=== PATIENT | female | born 1995 | race Caucasian/White ===

== ENCOUNTER → 2016-03-05 | Outpatient (CLI) | payer OTHER ==
[~2016-03-05] MED LIST: BCPILLS PO; IBUP-1277 PO; ONDA4TAB46 PO; PEDICHW53 PO; SERT50TA PO
[2016-03-05 16:06] LABS: URINE APPEARANCE CLEAR (CLEAR); URINE BILIRUBIN NEG (NEG); URINE COLOR DK YELLOW; URINE NITRITE NEG (NEG); URINE SPECIFIC GRAVITY 1.031 (1.000-1.030); UROBILINOGEN NEG (NEG)
[2016-03-05 16:12] LABS: MANUAL MICROSCOPIC REQUIRED? NO; REVIEW REQ? NO
== END | disposition home or self-care (01) ==
LOC: C.LABSPEC 15:59
PROVIDERS: ATTEND Obstetrics & Gynecology
DX: Z33.1 Pregnant state, incidental (principal)

== ENCOUNTER → 2016-03-06 | Outpatient (CLI) | payer OTHER ==
[2016-03-06 16:21] LABS: BASO % 0.4 %; BASO ABS # 0.04 K/uL (0-0.2); COMPLETE YES; EOS % 1.1 %; HEMATOCRIT 35.4 % (37-47); IG% 0.4 %; LYMPH % 21.5 %; LYMPH ABS # 2.02 K/uL (1.2-3.4); MEAN CELL VOLUME 81.2 fL (80-100); MEAN CORPUSCULAR HEMOGLOBIN 28.9 pg (25-34); MEAN CORPUSCULAR HGB CONC 35.6 g/dl (32-36); MEAN PLATELET VOLUME 9.4 fL (7.4-10.4); MONO % 9.6 %; PLATELET COUNT 297 K/uL (130-400); RED BLOOD COUNT 4.36 M/uL (4.2-5.4)
[2016-03-09 13:25] LABS: CHLAMYDIA TRACH RNA*** NOT DETECTED (NOT DETECTED); GC (NEIS GONORRHOEAE)RNA** NOT DETECTED (NOT DETECTED)
== END | disposition home or self-care (01) ==
LOC: C.LAB1850 15:36
PROVIDERS: ATTEND Obstetrics & Gynecology
DX: Z33.1 Pregnant state, incidental (principal)

== ENCOUNTER 2016-04-24 14:31 | Emergency (ER) | payer OTHER ==
[~2016-04-24] VITALS: Ht 152.4 cm; Wt 65.4 kg
[~2016-04-24 14:31] MED LIST changes: -ONDA4TAB46 PO; -PEDICHW53 PO
[2016-04-24 14:36] VITALS: TEMP 37.1; Ht 152.4 cm; Wt 65.4 kg
[2016-04-24] MEDS ORDERED: ONDANSETRON INJ 2 MG/ML 2 ML VIAL IV STA (16:05)
[2016-04-24] MEDS ORDERED: SODIUM CHLORIDE 0.9% 1000ML 1,000 ML IV ONE (16:15)
[2016-04-24 16:16] LABS: BASO % 0.2 %; BASO ABS # 0.02 K/uL (0-0.2); COMPLETE YES; HEMATOCRIT 34.3 % (37-47); IG% 0.4 %; LYMPH ABS # 1.42 K/uL (1.2-3.4); MEAN CELL VOLUME 79.6 fL (80-100); MEAN CORPUSCULAR HEMOGLOBIN 29.2 pg (25-34); MEAN CORPUSCULAR HGB CONC 36.7 g/dl (32-36); MEAN PLATELET VOLUME 9.2 fL (7.4-10.4); NEUT % 74.4 %; PLATELET COUNT 236 K/uL (130-400); RED BLOOD COUNT 4.31 M/uL (4.2-5.4); WHITE BLOOD COUNT 8.33 K/uL (4.8-10.8)
[2016-04-24 16:23] LABS: ALT/SGPT 21 U/L (12-78); BLOOD UREA NITROGEN 9 mg/dl (7-18); BUN/CREATININE RATIO 18.8 (10-20); CARBON DIOXIDE 20 mmol/L (21-32); CHLORIDE 105 mmol/L (98-107); CREATININE 0.49 mg/dl (0.60-1.20); GLUCOSE 74 mg/dl (70-99); POTASSIUM 3.6 mmol/L (3.5-5.1); SODIUM 139 mmol/L (136-145)
[2016-04-24 16:26] LABS: ALKALINE PHOSPHATASE 79 U/L (45-117); AST/SGOT 25 U/L (15-37)
[2016-04-24 17:43] LABS: URINE APPEARANCE CLEAR (CLEAR); URINE BILIRUBIN NEG (NEG); URINE COLOR DK YELLOW; URINE EPITHELIAL CELL AUTO >30 /lpf (0-5); URINE NITRITE NEG (NEG); URINE SPECIFIC GRAVITY 1.029 (1.000-1.030); UROBILINOGEN NEG (NEG)
[2016-04-24 17:49] LABS: MANUAL MICROSCOPIC REQUIRED? NO; REVIEW REQ? NO
[2016-04-24] MEDS ORDERED: ONDA4TAB46 PO (18:04)
[2016-04-24 18:15] VITALS: BP 115/67; PULSE 73; O2SAT 100
--- NOTE | 2016-04-25 10:52 | EMERGENCY ROOM VISIT NOTE ---
ED Visit Note First contact with patient: 15:47 Chief Complaint: Nausea, vomiting and diarrhea. History of Present Illness: Ms. Gonzalez is a 21-year-old white female who ambulates into the ED complaining of nausea, vomiting and diarrhea. Historically patient reports she is currently for the first time with an EDC of October 13. She has had no complications with her current . Patient reports approximately 2 days ago she started developing nausea and started vomiting almost immediately. Since that time she has been constant. She reports the last 12 hours she has vomited 6 times. She describes her vomiting is bilious. Her nausea and vomited worsening when she attempts to eat or drink. She has not identified any alleviating factors. She has not taken any medications for her nausea or vomiting prior to arrival at the hospital. Associated with her nausea vomiting she also reports she has had a light brown to yellowish diarrhea. She reports the last 12 hours she has had 3 episodes of diarrhea. She has not identified any aggravating or alleviating factors related to the diarrhea. She has not taken any medications for her diarrhea prior to arrival at the hospital. Associated with these 2 symptoms she also reports that she is slightly lightheaded in the first evening of her illness she had a 102F fever and has not returned. She denies fevers, chills, sweats, skin eruptions, skin color changes, upper respiratory tract symptoms, chest pain, abdominal pain, back/flank pain, extremity weakness/numbness/tingling, hematemesis, urinary symptoms, hematuria, vaginal bleeding/discharge, bloody stools, black/tarry stools. She also denies closed contact with anybody with similar symptoms, antibiotic use in the last 6 months and anytime out of this country in the last 3 months. Review of Systems: As noted above in history of present illness. All 5 body systems were reviewed and found to be negative as noted above. Past Medical History: Patient denies. Current Medications: Zoloft, multivitamins. Allergies to Medications: Patient denies. Social History: Patient is currently; she feels safe in her home environment; she denies tobacco and alcohol use. Physical Examination: Vital Signs: Date Time Temp Pulse Resp B/P Pulse Ox O2 Delivery O2 Flow Rate FiO2 04/24/16 18:15 73 18 115/67 100 04/24/16 17:13 72 18 112/63 04/24/16 16:36 90 18 93/63 100 Room Air 74 117/76 71 117/77 04/24/16 14:36 37.1 91 18 123/80 100 Room Air GENERAL: 21-year-old female in mild distress due to symptoms, nontoxic-appearing , afebrile and hemodynamically stable. NEUROLOGICAL: Awake, alert and oriented to person, place and time. Answering questions appropriately and following commands. Normal gait. Good hand eye coordination. No focal motor sensory deficits. SKIN: Warm, dry and pink. No soft tissue eruptions or trauma noted. HEENT: Atraumatic and normocephalic. PERRLA. Sclera white and conjunctiva pink. No drainage from naris. Oral cavity moist and pink. Pharynx is nonerythematous or edematous. Speech normal. No lymphadenopathy. Trachea midline. No jugular venous distention. BACK: No tenderness over the bony spine. No CVA tenderness. THORAX: Lungs sounds are clear to auscultation and equal bilaterally with symmetrical chest wall. No wheezing, rales or rhonchi. No crepitus, tenderness , subcutaneous air or deformities noted. HEART: Regular rate and rhythm. No gallops, rubs or murmurs are appreciated. ABDOMEN: Flat, soft and nontender. Positive bowel sounds in all quadrants. No guarding, rigidity or organomegaly. EXTREMITIES: Moves all extremities well on command and with purpose. All distal neurovascular statuses are intact and equal bilaterally. ED Course: Patient is assessed as noted above. Laboratory Testing: Test 04/24/16 15:51 04/24/16 16:21 04/24/16 17:10 Range/Units White Blood Count 8.33 4.8-10.8 K/uL Red Blood Count 4.31 4.2-5.4 M/uL Hemoglobin 12.6 12.0-16.0 g/dL Hematocrit 34.3 37-47 % Mean Corpuscular Volume 79.6 80-100 fL Mean Corpuscular Hemoglobin 29.2 25-34 pg Mean Corpuscular Hemoglobin Concent 36.7 32-36 g/dl Platelet Count 236 130-400 K/uL Mean Platelet Volume 9.2 7.4-10.4 fL Neutrophils (%) (Auto) 74.4 % Lymphocytes (%) (Auto) 17.0 % Monocytes (%) (Auto) 7.0 % Eosinophils (%) (Auto) 1.0 % Basophils (%) (Auto) 0.2 % Neutrophils # (Auto) 6.20 1.4-6.5 K/uL Lymphocytes # (Auto) 1.42 1.2-3.4 K/uL Monocytes # (Auto) 0.58 0.11-0.59 K/uL Eosinophils # (Auto) 0.08 0-0.5 K/uL Basophils # (Auto) 0.02 0-0.2 K/uL RDW Standard Deviation 37.0 36.4-46.3 fL RDW Coefficient of Variation 12.8 11.5-14.5 % Immature Granulocyte % (Auto) 0.4 % Immature Granulocyte # (Auto) 0.03 0.00-0.02 K/uL Sodium Level 139 136-145 mmol/L Potassium Level 3.6 3.5-5.1 mmol/L Chloride Level 105 98-107 mmol/L Carbon Dioxide Level 20 21-32 mmol/L Anion Gap 14.0 3-11 mmol/L Blood Urea Nitrogen 9 7-18 mg/dl Creatinine 0.49 0.60-1.20 mg/dl Est Creatinine Clear Calc Drug Dose 154.6 ml/min Estimated GFR () > 150.0 Estimated GFR (Non- 140.3 BUN/Creatinine Ratio 18.8 10-20 Random Glucose 74 70-99 mg/dl Calcium Level 9.0 8.5-10.1 mg/dl Total Bilirubin 0.2 0.2-1 mg/dl Direct Bilirubin < 0.1 0-0.2 mg/dl Aspartate Amino Transf (AST/SGOT) 25 15-37 U/L Alanine Aminotransferase (ALT/SGPT) 21 12-78 U/L Alkaline Phosphatase 79 45-117 U/L Total Protein 7.4 6.4-8.2 gm/dl Albumin 3.4 3.4-5.0 gm/dl Influenza Type A Antigen Neg for Influ A NEG Influenza Type B Antigen Neg for Influ B NEG Urine Color DK YELLOW Urine Appearance CLEAR CLEAR Urine pH 5.0 4.5-7.5 Urine Specific [place] 1.029 1.000-1.030 Urine Protein NEG NEG Urine Glucose (UA) NEG NEG Urine Ketones 4+ NEG Urine Occult Blood NEG NEG Urine Nitrite NEG NEG Urine Bilirubin NEG NEG Urine Urobilinogen NEG NEG Urine Leukocyte Esterase TRACE NEG Urine WBC (Auto) 5-10 0-5 /hpf Urine RBC (Auto) 0-4 0-4 /hpf Urine Hyaline Casts (Auto) 1-5 0-5 /lpf Urine Epithelial Cells (Auto) >30 0-5 /lpf Urine Bacteria (Auto) 1+ NEG Patient was hydrated with normal saline and received 4 mg of Zofran IV. Patient was reassessed multiple times while in the emergency department. Patient's case was reviewed with Dr. Connell; ureteral diagnostic approach, treatment, disposition and plan Patient was trialed on crackers and juice and had no return of nausea or vomiting. Additionally when she is emergency department she had no additional episodes of diarrhea. Patient was educated about today's ED visit and instructed on her treatment plan ; she verbalizes understanding and agreement with this plan. Clinical Impression: Nausea, vomiting diarrhea. Decision-Making: Initially my differential diagnosis I considered gastroenteritis, nonspecific diarrheal illness, hyperemesis gravidarum, urinary tract infection and other causes. Disposition: Patient discharged home in stable condition accompanied by her mother; prior to departure she was reassessed and subjectively she was feeling much better and was nausea and diarrhea free. On discharge patient did report she was having a headache; she reports a history of migraines, and inquired what medication she could have I offered her Tylenol and she refused. Plan: Patient was encouraged use 650 mg of acetaminophen every 6 hours as needed for Patient was prescribed Zofran 4 mg every 6 hours as needed for nausea/vomiting. Patient was encouraged to use [id number] Motrin diarrhea. Patient was encouraged to stay well-hydrated with increased clear fluids. Patient was encouraged to use a bland diet for the next 48 hours. Patient was encouraged to follow-up with her [employer] SAL[employer]ATE physician as well as her primary care provider for recheck. Patient was encouraged return ED for worsening/uncontrolled nausea, vomiting diarrhea, fevers, bloody vomitus, bloody stools, vaginal bleeding or any new/ concerning
[2016-10-15] MEDS ORDERED: PEDICHW53 PO (15:45)
== END 2016-04-24 18:17 | disposition home or self-care (01) ==
LOC: C.EDB 14:33 → C.EDA 18:17
DX: R11.2 Nausea with vomiting, unspecified (principal); R19.7 Diarrhea, unspecified

== ENCOUNTER → 2016-05-01 | Outpatient (CLI) | payer OTHER ==
[~2016-05-01] MED LIST changes: -BCPILLS PO; -IBUP-1277 PO; +ONDA4TAB46 PO; +PEDICHW53 PO
[2016-05-01 17:58] LABS: GTGD 50 Grams
== END | disposition home or self-care (01) ==
LOC: C.LAB1850 16:26
PROVIDERS: ATTEND Obstetrics & Gynecology
DX: Z34.00 Encounter for supervision of normal first pregnancy, unspecified trimester (principal)

== ENCOUNTER → 2016-07-24 | Outpatient (CLI) | payer OTHER ==
[2016-07-24 18:21] LABS: URINE APPEARANCE CLEAR (CLEAR); URINE BILIRUBIN NEG (NEG); URINE COLOR YELLOW; URINE EPITHELIAL CELL AUTO >30 /lpf (0-5); URINE NITRITE NEG (NEG); URINE SPECIFIC GRAVITY 1.026 (1.000-1.030); UROBILINOGEN NEG (NEG)
[2016-07-24 18:23] LABS: MANUAL MICROSCOPIC REQUIRED? NO; REVIEW REQ? NO
== END | disposition home or self-care (01) ==
LOC: C.LABSPEC 17:49
PROVIDERS: ATTEND Obstetrics & Gynecology
DX: Z34.03 Encounter for supervision of normal first pregnancy, third trimester (principal)

== ENCOUNTER → 2016-07-24 | Outpatient (CLI) | payer OTHER ==
[2016-07-24 16:53] LABS: HEMATOCRIT 31.7 % (37-47)
[2016-07-24 18:31] LABS: GTGD 50 Grams
== END | disposition home or self-care (01) ==
LOC: C.LAB1850 14:58
PROVIDERS: ATTEND Obstetrics & Gynecology
DX: Z34.03 Encounter for supervision of normal first pregnancy, third trimester (principal)

== ENCOUNTER → 2016-08-27 | Outpatient (CLI) | payer OTHER ==
[2016-08-27 16:06] LABS: ALT/SGPT 16 U/L (12-78); BLOOD UREA NITROGEN 8 mg/dl (7-18); BUN/CREATININE RATIO 12.5 (10-20); CALCIUM 8.7 mg/dl (8.5-10.1); CARBON DIOXIDE 24 mmol/L (21-32); CHLORIDE 109 mmol/L (98-107); GLUCOSE 95 mg/dl (70-99); POTASSIUM 3.5 mmol/L (3.5-5.1); SODIUM 143 mmol/L (136-145)
[2016-08-27 16:09] LABS: ALB/GLOB RATIO 0.7 (0.9-2); ALKALINE PHOSPHATASE 132 U/L (45-117); AST/SGOT 13 U/L (15-37)
[2016-08-27 17:07] LABS: HEMATOCRIT 32.8 % (37-47); MEAN CELL VOLUME 81.4 fL (80-100); MEAN CORPUSCULAR HEMOGLOBIN 26.6 pg (25-34); MEAN CORPUSCULAR HGB CONC 32.6 g/dl (32-36); MEAN PLATELET VOLUME 9.7 fL (7.4-10.4); PLATELET COUNT 330 K/uL (130-400); RED BLOOD COUNT 4.03 M/uL (4.2-5.4); WHITE BLOOD COUNT 12.13 K/uL (4.8-10.8)
== END | disposition home or self-care (01) ==
LOC: C.LAB1850 14:55
PROVIDERS: ATTEND Obstetrics & Gynecology
DX: O13.3 Gestational [pregnancy-induced] hypertension without significant proteinuria, third trimester (principal)

== ENCOUNTER → 2016-09-18 | Outpatient (CLI) | payer OTHER | LOC: C.LABSPEC 17:42 | PROVIDERS: ATTEND Obstetrics & Gynecology | DX: Z34.03 Encounter for supervision of normal first pregnancy, third trimester (principal) ==

== ENCOUNTER 2016-09-24 14:48 | Observation (INO) | payer OTHER ==
[~2016-09-24] VITALS: Ht 152.4 cm; Wt 79.5 kg
[~2016-09-24 14:48] MED LIST changes: -PEDICHW53 PO
[2016-09-24 15:28] VITALS: Ht 152.4 cm; Wt 79.5 kg
[2016-09-24] MEDS ORDERED: IV FLUIDS COMPLETED PRN (16:30)
[2016-09-24 16:44] LABS: BASO % 0.2 %; BASO ABS # 0.02 K/uL (0-0.2); EOS % 0.8 %; HEMATOCRIT 32.1 % (37-47); LYMPH % 18.3 %; LYMPH ABS # 2.09 K/uL (1.2-3.4); MEAN CELL VOLUME 79.7 fL (80-100); MEAN CORPUSCULAR HEMOGLOBIN 26.3 pg (25-34); MEAN PLATELET VOLUME 9.7 fL (7.4-10.4); MONO % 7.3 %; NEUT % 72.4 %; PLATELET COUNT 310 K/uL (130-400); RED BLOOD COUNT 4.03 M/uL (4.2-5.4); WHITE BLOOD COUNT 11.43 K/uL (4.8-10.8)
[2016-09-24 16:47] LABS: COMPLETE YES
[2016-09-24 16:48] LABS: INR 0.9 (0.9-1.1); PARTIAL THROMBOPLASTIN RATIO 0.9; PROTHROMBIN TIME (PATIENT) 9.6 SECONDS (9.0-12.0)
[2016-09-24 17:03] LABS: ALT/SGPT 14 U/L (12-78); AST/SGOT 15 U/L (15-37); CREATININE 0.59 mg/dl (0.60-1.20)
[2016-09-24] MEDS ORDERED: ACETAMINOPHEN 325 MG TAB PO STA (17:16)
[2016-09-24 19:14] LABS: URINE PROTIEN/CREAT RATIO 0.2 (0-0.2); URINE TOTAL PROTEIN 20.7 mg/dl (0-11.9)
--- NOTE | 2016-10-03 09:31 | Discharge Summary ---
Discharge Summary Date of Service Oct 03, 2016. Discharge Summary Admission Date: Sep 24, 2016 at 16:04 Discharge Disposition: Home Principal Diagnosis: hypertension in Immunizations: Have You Had Influenza Vaccine: No History of Tetanus Vaccine?: Unknown History of Pneumococcal: No History of Hepatitis B Vaccine: Unknown Hospital Course Total Time Spent: Less than 30 minutes This includes examination of the patient, discharge planning, medication reconciliation, and communication with other providers. Discharge Instructions Please refer to the electronic Patient Visit Report (Discharge Instructions) for additional information.
[2016-10-15] MEDS ORDERED: PEDICHW53 PO (15:45)
== END 2016-09-24 19:55 | disposition home or self-care (01) ==
LOC: C.OPB 14:48 → C.LD 14:49 → C.OPB 16:04 → C.LD 16:04
PROVIDERS: ADMIT Obstetrics & Gynecology; ATTEND Obstetrics & Gynecology
DX: O26.893 Other specified pregnancy related conditions, third trimester (principal); Z3A.37 37 weeks gestation of pregnancy; R10.11 Right upper quadrant pain; R51 Headache

== ENCOUNTER → 2016-09-25 | Outpatient (CLI) | payer OTHER ==
[~2016-09-25] MED LIST changes: -ONDA4TAB46 PO; +PEDICHW53 PO; -SERT50TA PO
[2016-09-25 21:48] LABS: URINE TOTAL PROTEIN 15.7 mg/dl (0-11.9)
[2016-09-25 21:58] LABS: URINE TOTAL PROTEIN CALC 202.5 mg/24 hr (0-149.1)
== END | disposition home or self-care (01) ==
LOC: C.LAB 19:55
PROVIDERS: ATTEND Obstetrics & Gynecology
DX: O16.3 Unspecified maternal hypertension, third trimester (principal)

== ENCOUNTER 2016-10-11 12:33 | Inpatient (IN) | payer OTHER ==
[~2016-10-11] VITALS: Ht 152.4 cm; Wt 81.8 kg
[2016-10-11 12:55] VITALS: Ht 152.4 cm; Wt 81.8 kg
[2016-10-11] MEDS ORDERED: LACTATED RINGER'S 1000ML 1,000 ML IV PRN (13:40)
[2016-10-11] MEDS ORDERED: LACTATED RINGER'S 1000ML 500 ML IV PRN ×2 (13:41→19:01)
[2016-10-11] MEDS ORDERED: OXYTOCIN 30 UNITS/500ML NSS IV PRN ×2 (13:45→22:45)
[2016-10-11 14:06] LABS: HEMATOCRIT 31.8 % (37-47); MEAN CELL VOLUME 79.1 fL (80-100); MEAN CORPUSCULAR HEMOGLOBIN 25.9 pg (25-34); MEAN CORPUSCULAR HGB CONC 32.7 g/dl (32-36); MEAN PLATELET VOLUME 9.4 fL (7.4-10.4); PLATELET COUNT 305 K/uL (130-400); RED BLOOD COUNT 4.02 M/uL (4.2-5.4); WHITE BLOOD COUNT 12.33 K/uL (4.8-10.8)
--- NOTE | 2016-10-11 14:09 | Medical Student: [facility] ---
Med Student History & Physical Date of Service Oct 11, 2016. Chief Complaint R/O Ruptured Membrances History of Present Illness Source: patient This is a 21-year-old female at 39/5 weeks per LMP/US who presents to labor and delivery with spontaneous ROM and an DENISE of 10/13/2016. Her course was complicated by gestational hypertension but was otherwise unremarkable. Patient states that SROM happened around 0400 this morning, and this was confirmed in the office by Dr. Spence, who sent her here. She is not currently uncomfortable and states that she feels contractions about 2-3 times per hour. There is plenty of movement and no vaginal bleeding. Her blood type is AB+, and she is rubella immune; GBS negative; hep B negative; VDRL/RPR negative; HIV C/G negative; 1 hour glucose negative. Her most recent Hb was 10.7 and Hct was 32.8% (both drawn in August). She states that she has had headaches for the last four days, all of the starting around 1 PM and lasting until 8 PM; she does have a history of migraines, and her recent headaches are consistent with her previous migraines. She took Tylenol for these but that did not help. Denies N/V, dizziness, shortness of breath, chest pain, and dysuria. OB History Gestational HTN [employer] History Menarche: age 11 LMP: 01/07/2016 Paps: no history of abnormal paps Past Medical History Kidney stones Migraines Past Surgical History [place] teeth extraction Tonsillectomy Open appendectomy Social History Smoking Status: Never Smoker Smokeless Tobacco Use: No Alcohol Use: none Drug Use: none Marital Status: single Housing status: lives with family Occupational Status: student Allergies Coded Allergies: No Known Allergies (Unverified , 09/24/16) Home Medications Pediatric Multiple Vitamin W/ (Flintstones Gummies), 2 TAB PO DAILY Review of Systems Constitutional: No fever, No chills, No sweats, No weight loss, No weakness, No fatigue, No problem reported Eyes: + problem reported (Some blurry vision with her migraines) Respiratory: No cough, No shortness of breath Cardiovascular: No chest pain, No edema Abdomen: + pain (Contractions), No nausea, No vomiting, No diarrhea, No constipation, No GI bleeding, No problem reported Musculoskeletal: No swelling, No calf pain Genitourinary - Female: + , No dysuria, No urinary frequency, No urinary retention, No vaginal bleeding Neurologic: + problem reported (Migraines) Psychiatric: No depression symptoms Physical Exam Vital Signs: T 36.9 BP 135/91 HR 93 RR 20 General Appearance: WD/WN, no apparent distress Head: normocephalic Eyes: normal inspection Respiratory/Chest: chest non-tender, lungs clear, normal breath sounds Cardiovascular: regular rate, rhythm, no edema, no gallop, no murmur Abdomen / GI: normal bowel sounds, non tender, soft, + pertinent finding ( Gravid uterus) Genitourinary - Female: + pertinent finding (Dilation: 4 cm Effacement: 80% Station: -1) Extremities: normal inspection, no calf tenderness, no pedal edema Monitoring External Monitor: Moderate variability +Accels No decels Category 1 HR baseline 130 Tocodynamometer: Contractions: 2-3 per hour, per patient Assessment and Plan Assessment: This is a 21-year-old female who presents to labor and delivery with spontaneous ROM at 39/5 gestation. Her was complicated by gestational HTN. tracing is category 1 and patient is not currently in pain or uncomfortable. Plan: Admit to labor and delivery. Monitor mother and fetus with toco and EFm. NPO except ice chips and clear liquids. Induce with Pitocin as tolerated by both mother and fetus. Will get epidural if requested. Expect normal spontaneous vaginal delivery.
[2016-10-11] MEDS: LACTATED RINGER'S 1000ML 1,000 ML IV SCH ×2 (14:45→18:16)
[2016-10-11] MEDS ORDERED: FENTANYL 2MCG/ML ROPIV 1.25MG/ML 100ML BAG EPI ONE (17:36)
[2016-10-11] MEDS ORDERED: EpHEDrine SULFATE INJ 50 MG/ML AMP ONE (17:36)
[2016-10-11] MEDS ORDERED: BUPIVACAINE 0.25% 30 ML VIAL ONE (17:36)
[2016-10-11] MEDS ORDERED: FENTANYL CITRATE INJ 50 MCG/1 ML 2 ML VIAL ONE (17:36)
[2016-10-11] MEDS ORDERED: NALOXONE HCL INJ 1 MG in SODIUM CHLORIDE 0.9% 1000ML 1,000 ML IV PRN (19:01)
[2016-10-11] MEDS ORDERED: FENTANYL 2MCG/ML ROPIV 1.25MG/ML 100ML BAG EPI PRN (19:15)
[2016-10-11] MEDS ORDERED: NALBUPHINE HCL INJ 10 MG/ML AMP IV PRN (19:15)
[2016-10-11] MEDS ORDERED: EpHEDrine SULFATE INJ 50 MG/ML AMP IV PRN (19:15)
[2016-10-11] MEDS ORDERED: NALOXONE HCL INJ 0.4 MG/1 ML VIAL/CARP IV PRN (19:15)
[2016-10-11] MEDS ORDERED: DiphenhydrAMINE HCL 50 MG/ML VIAL IV PRN (19:15)
[2016-10-11] MEDS ORDERED: ONDANSETRON INJ 2 MG/ML 2 ML VIAL IV PRN (19:15)
[2016-10-11] MEDS ORDERED: ACETAMINOPHEN 325 MG TAB PO PRN (22:45)
[2016-10-11] MEDS ORDERED: BENZOCAINE 20% AER SPR 82.5 GM CAN EXT PRN (22:45)
[2016-10-11] MEDS ORDERED: HYDROCORTISONE ACETATE 25 MG SUPP PR PRN (22:45)
[2016-10-11] MEDS ORDERED: ACETAMINOPHEN/CODEINE 300/30MG TAB PO PRN ×2 (22:45)
[2016-10-11] MEDS ORDERED: OXYCODONE/ACETAMINOPHEN 5-325 TAB PO PRN (22:45)
[2016-10-11] MEDS ORDERED: DIPHTHERIA/TETANUS/PERTUSSIS 0.5 ML SYR/VIAL IM. ONE (22:45)
[2016-10-11] MEDS ORDERED: LANOLIN OINT EXT PRN ×2 (22:45)
[2016-10-11] MEDS ORDERED: SUPERCREAM 0.870 % 15GM JAR EXT PRN (22:45)
[2016-10-12] VITALS (7 sets, daily range): BP systolic 100–131; BP diastolic 63–85; PULSE 77–125; TEMP 36.6–36.9; O2SAT 98–100
[2016-10-12] MEDS: IBUPROFEN 600 MG TAB PO PRN ×4 (00:02→23:18)
--- NOTE | 2016-10-12 00:17 | DELIVERY SUMMARY ---
DATE OF OPERATION: 10/11/2016 Stephani arrived with premature rupture of membranes at term with group B strep negative. She started to contract, did require some Pitocin augmentation as well. heart rate tracing category 1. The patient progressed to fully dilate and pushed over less than 30 minutes, delivered baby in left occiput anterior position. Mouth and then nares suctioned. There was a nuchal cord that was loosely passed over the head. Fluid was clear. Gentle traction used. No excessive force. Liver vigorous female infant. Cord clamped and cut. Cord gases obtained. Cord blood obtained. Placenta removed with gentle traction. IV Pitocin started. Small first degree tear, repaired with 3-0 Vicryl. Sponge and instrument counts correct. Estimated blood loss 350 mL. I attest to the content of the Intraoperative Record and any orders documented therein. Any exception s are noted below.
--- NOTE | 2016-10-12 06:23 | OB/GYN Progress Note ---
FURNITURE MAKER Progress Note Date of Service Oct 12, 2016. Subjective conversation w/ patient, physical exam, chart review, lab review Ambulation: ambulating normally Voiding: no voiding problems Diet Tolerance: Clear Liquids Lochia: Moderate Feeding Type: Breast Feeding Pain: 2/10 pain Review of Systems Constitutional: No fever Respiratory: No shortness of breath Cardiac: No chest pain Abdomen: No nausea, No vomiting Female : No dysuria Objective Vital Signs Date Time Temp Pulse Resp B/P (MAP) Pulse Ox O2 Delivery O2 Flow Rate FiO2 10/12/16 03:00 36.9 93 16 100/63 (75) 99 Room Air 10/12/16 02:00 Room Air 10/12/16 02:00 36.7 77 18 119/77 (91) Room Air Physical Exam General Appearance: WELL-APPEARING Respiratory/Chest: lungs clear, normal breath sounds, no respiratory distress Cardiovascular: regular rate, rhythm Abdomen: normal bowel sounds, non tender, soft Fundus: Firm, Relation to Umbilicus (1 FB below) Extremities: non-tender, no pedal edema Laboratory Results Last 24 Hours Test 10/11/16 13:48 10/12/16 04:44 White Blood Count 12.33 K/uL Red Blood Count 4.02 M/uL Hemoglobin 10.4 g/dL Hematocrit 31.8 % Mean Corpuscular Volume 79.1 fL Mean Corpuscular Hemoglobin 25.9 pg Mean Corpuscular Hemoglobin Concent 32.7 g/dl RDW Standard Deviation 38.7 fL RDW Coefficient of Variation 13.4 % Platelet Count 305 K/uL Mean Platelet Volume 9.4 fL Medications Current Inpatient Medications Medications (Trade) Dose Ordered Sig/Luz Marina Route Start Time Stop Time Status Last Admin Dose Admin Lactated Ringer's 1,000 ml @ 125 mls/hr Q8H IV 10/11/16 13:40 10/13/16 13:39 10/11/16 18:16 125 MLS/HR Oxytocin (Pitocin IV) 30 units UD PRN IV 10/11/16 22:45 11/10/16 22:44 Benzocaine (Dermoplast Aero Spr) 1 appln PRN PRN EXT 10/11/16 22:45 11/10/16 22:44 10/12/16 00:02 82.5 APPLN Cocaine HCl (Supercream 0.870% Cr) BID PRN EXT 8/10/17 22:45 10/25/16 22:44 Hydrocortisone Acetate (Anusol Hc Supp) 25 mg BID PRN PA 10/11/16 22:45 11/10/16 22:44 Lanolin (Lanolin Oint) PRN PRN EXT 10/11/16 22:45 11/10/16 22:44 Prenat Multivit/ [place]/Iron/Folic Ac ( Vitamin Tab) 1 tab DAILY PO 10/12/16 08:00 11/11/16 07:59 Ibuprofen (Motrin Tab) 600 mg Q4H PRN PO 10/11/16 22:45 11/10/16 22:44 10/12/16 00:02 600 MG Acetaminophen (Tylenol Tab) 650 mg Q6H PRN PO 10/11/16 22:45 11/10/16 22:44 Acetaminophen/ Codeine Phosphate (Tylenol w/ Codeine #3 Tab) 1 tab Q4H PRN PO 10/11/16 22:45 11/10/16 22:44 Acetaminophen/ Codeine Phosphate (Tylenol w/ Codeine #3 Tab) 2 tab Q4H PRN PO 10/11/16 22:45 11/10/16 22:44 Bisacodyl (Dulcolax Tab) 5 mg 20 PO 10/12/16 20:00 10/12/16 20:01 Bisacodyl (Dulcolax Supp) 10 mg DAILY PRN PA 10/13/16 07:00 Docusate Sodium (coLACE CAP) 100 mg BID PO 10/12/16 08:00 11/11/16 07:59 Assessment and Plan Post- Day Number: 1 Continue Routine Care: A/P: This is a 21 y/o female, , s/p induction adn normal vaginal delivery. Pt arrived with PROM at term. She is ambulating and clinically stable. Plan: - Vitals signs are reviewed and WNL (Tmax 36.9) - Last Hgb is 10.4. This AM pending - Blood type AB+, GBS neg, Rubella Immune - Routine care - Encourage ambulation, monitor and control pain with medication as needed, continue with regular diet as tolerated and monitor lochia - Stool softeners and sitz bath recommended - Encourage breast feeding and educate about breast feeding Resident Physician Supervision Note: I interviewed and examined the patient. Discussed with Dr. Mancini and agree with findings and plan as documented in the note. Any exceptions or clarifications are listed here: [None] Documented By: James Alonzo Resident Involvement: Resident Care Provided Care Provided: OB Delivery
--- NOTE | 2016-10-12 07:26 | Discharge Instructions ---
Discharge Instructions Date of Service Oct 12, 2016. Admission Reason for Admission: R/O Ruptured Membrances Discharge Discharge Diagnosis / Problem: after delivery Discharge Goals Goal(s): Routine recovery after delivery Medications Continue Dispensed Medications: supercream, dermaplast, tucks, lansinoh Activity Recommendations Activity Limitations: per Instructions/Follow-up section . Instructions / Follow-Up Instructions / Follow-Up ACTIVITY RECOMMENDATIONS: * Gradual return to full activity over the next 2-3 weeks. * No lifting - nothing heavier than baby over the next 2-3 weeks. * Do not engage in vigorous exercise, sexual activity or sports until cleared by your physician. * Do not drive or operate any motorized equipment until cleared by your physician. * You may shower/bathe daily. MEDICATIONS: For discomfort or pain, you may use Acetaminophen (Tylenol), Ibuprofen (Advil), or Naproxen (Aleve) following the package directions. For constipation you may use Colace following the package directions. BREAST CARE: If you are not breast feeding: * Wear a supportive bra 24 hours a day for one to two weeks. * Avoid stimulating your breasts and nipples as much as possible during the first few weeks after delivery. * When taking a shower, have the warm water hit your back, not breasts. * When your breasts feel full, apply ice packs. Usually three to four times a day helps ease the discomfort. * Take a mild pain medication (Tylenol / Motrin) when you are uncomfortable. If breast feeding: * Use breast milk to lubricate nipples. Lansinoh cream may be used for sore nipples. You do not need to remove cream prior to breast feeding. If using a different brand of cream, check the label for directions regarding removal of cream prior to nursing. * Wear a supportive bra. * If having problems with breasts or breast feeding, call a system consultant or your health care provider. EPISIOTOMY CARE: After delivery, if you have an episiotomy (stitches), the following steps will ease discomfort and aid healing. * For the first 24 hours after delivery, place ice packs next to your episiotomy to help reduce swelling. * After the first 24 hour-period, sitz baths, either portable or in the tub, are suggested. A shower with a shower arm sprayed over the episiotomy may be comforting. * Aleah care should be done after each voiding and bowel movement. Squirt warm water from a plastic bottle over the perineum (region of the body between the anus and urinary opening) and pat dry. * Use Dermoplast to ease discomfort. Shake container. [place] directly over the episiotomy. Place a Tucks on a clean sanitary pad next to your episiotomy. SPECIAL CARE INSTRUCTIONS: When you are discharged from the hospital, it is important for you to follow the instructions listed below: * During the first week at home, you should be able to care for yourself and your baby. In addition, the usual light household activities are encouraged. * Limit your activities to the way you feel. Do not try to clean the house or move furniture. Be sensible. * If you actively engage in sports and have done so up until the time of your delivery, you may resume these activities as soon as you feel able. This may take up to one month or even longer. Use good judgment. * Continue to take your vitamins for at least six weeks after the of your baby. * Your diet need not be limited unless you were on a special diet before your delivery. Breast-feeding mothers need around 2500 calories per day and at least 64-80 ounces of fluid per day (8 to 10 glasses). * You should eat foods from the four major food groups. Crash diets or fad diets are to be avoided. Eating lean meats, fresh fruits and vegetables, low-fat dairy products, high fiber foods and a regular exercise program, will help you get back to your pre- weight without putting your health at risk. * Constipation is sometimes a problem after delivery. Take a mild laxative as needed. If breast feeding, Milk of Magnesia is acceptable to use. You may use a suppository or Fleets enema if no episiotomy. * A daily shower or tub bath is suggested. Be sure to thoroughly and gently dry the perineum. * A bloody vaginal discharge will usually continue until around four weeks post . A small amount of bleeding may continue for as long as six weeks. Vaginal discharge changes from the bright red bleeding after delivery to pink then brownish and finally yellowish-pink before becoming white and disappearing. * Bleeding may increase with activity. Your first period may come in 4-8 weeks. If you are breast feeding, your period may be delayed even longer. * [place] (sex) can begin whenever both you and your partner feel comfortable and do not have any form of genital infection. It is recommended that you wait at least six weeks for internal and external healing to occur. If you have questions, please talk to your health care practitioner. A condom should be used to prevent infection and . * Foreplay, gentle intercourse and lubrication is very important the first several times to prevent pain. A water-based lubricant such as K-Y jelly or Astroglide may be used. * If you have RH negative blood and your baby is RH positive, you will receive RHOGAM by injection prior to discharge. The nurse will give you a card to keep with you that has the date and place that you received RHOGAM after delivery. * During your care, you had a Rubella screen done to check for the presence of rubella antibodies in your blood. If your test was negative, you will receive a Rubella vaccine prior to discharge. This vaccine may cause a fever, soreness at the injection site and flu-like symptoms. If these symptoms persist, notify your health care practitioner. is not advised for one month after a Rubella vaccine. * Verbalizes understanding of car seat law as reviewed with patient nursing. * Car Seat hand-out given and reviewed with patient by nursing. * Shaken baby information reviewed with patient by nursing. Call you doctor if: * Heavy bleeding (saturating several pads an hour) or passing clots the size of your fist. * A fever >101 degrees F (38.3 degrees C) on two occasions four hours apart and /or chills. * Unusual pain in the pelvic or vaginal areas. * "Baby Blues" lasting longer than two weeks. If you have any questions or concerns, call your health care practitioner at . FOLLOW UP VISIT: * Please call the office at to schedule a 6 week examination. It is important you keep this appointment. It is important for you to make arrangements for either yearly or twice yearly check-ups thereafter. Current Hospital Diet Patient's current hospital diet: Regular OB Diet Discharge Diet Recommended Diet: Regular Diet Pending Studies Studies pending at discharge: no Medical Emergencies . Who to Call and When: Medical Emergencies: If at any time you feel your situation is an emergency, please call 911 immediately. . Non-Emergent Contact Non-Emergency issues call your: Dough Machine Operator . . "Provider Documentation" section prepared by Radha Mancini. . VTE Core Measure Inpt VTE Proph given/why not?: Treatment not indicated
[2016-10-12 08:01] LABS: HEMATOCRIT 22.5 % (37-47)
[2016-10-12] MEDS: DOCUSATE SODIUM 100 MG CAP PO SCH ×2 (08:21→19:07)
[2016-10-12] MEDS: PRENATAL VITAMIN TAB PO SCH (08:21)
--- NOTE | 2016-10-12 12:31 | Anesthesia Procedure Note ---
Anesthesia Epidural Removal Nt Date & Time Oct 12, 2016 at 12:30 Vital Signs Pain Intensity: 1.0 Vital Signs Past 12 Hours Date Time Temp Pulse Resp B/P (MAP) Pulse Ox O2 Delivery O2 Flow Rate FiO2 10/12/16 11:20 36.8 84 16 125/79 (94) 100 Room Air 10/12/16 11:20 100 Room Air 10/12/16 08:00 Room Air 10/12/16 08:00 36.6 82 18 111/73 (86) 100 Room Air 10/12/16 03:00 36.9 93 16 100/63 (75) 99 Room Air 10/12/16 02:00 Room Air 10/12/16 02:00 36.7 77 18 119/77 (91) Room Air Notes Mental Status: alert / awake / arousable, participated in evaluation Nausea / Vomiting: adequately controlled Pain: adequately controlled Airway Patency, RR, SpO2: stable & adequate BP & HR: stable & adequate Hydration State: stable & adequate Neuraxial Anesthesia: was administered Anesthetic Complications: no major complications apparent, pt satisfied with anesthetic care Epidural: removed without complications, with tip intact
[2016-10-12] MEDS ORDERED: BISACODYL 5 MG TABEC PO SCH (20:00)
[2016-10-13 03:35] VITALS: BP 111/74; PULSE 102
[2016-10-13] MEDS: IBUPROFEN 600 MG TAB PO PRN ×2 (03:35→11:35)
[2016-10-13] MEDS ORDERED: BISACODYL 10 MG SUPP PR PRN (07:00)
[2016-10-13 07:55] LABS: HEMATOCRIT 20.5 % (37-47)
[2016-10-13] MEDS: DOCUSATE SODIUM 100 MG CAP PO SCH (07:58)
[2016-10-13] MEDS: PRENATAL VITAMIN TAB PO SCH (07:58)
[2016-10-13 08:00] VITALS: BP 131/95; PULSE 92; TEMP 36.8; O2SAT 98
--- NOTE | 2016-10-13 08:15 | Progress Note ---
Subjective Oct 13, 2016. Subjective conversation w/ patient, physical exam, lab review Ambulation: ambulating normally Voiding: no voiding problems Passing Gas: Yes Diet Tolerance: Regular Diet Lochia: Small Feeding Type: Breast Feeding Comment: Patient notes she is feeling better than yesterday. ambulating without difficulty--no lightheadedness or dizziness. hgb is 6.8, was 7.4. Objective Vital Signs Date Time Temp Pulse Resp B/P (MAP) Pulse Ox O2 Delivery O2 Flow Rate FiO2 10/13/16 03:35 111/74 (86) 102 10/12/16 23:20 98 Room Air 10/12/16 23:20 36.6 108 18 105/66 (79) 98 Room Air 10/12/16 18:00 36.7 118 20 131/83 (99) Room Air 10/12/16 15:30 Room Air 10/12/16 15:30 36.8 125 20 128/85 (99) Room Air 10/12/16 11:20 36.8 84 16 125/79 (94) 100 Room Air 10/12/16 11:20 100 Room Air Physical Exam General Appearance: WELL-APPEARING, WD/WN, NO APPARENT DISTRESS Abdomen: non tender, soft Fundus: Firm, Non-Tender, Relation to Umbilicus (at u) Extremities: non-tender, normal inspection, no pedal edema Laboratory Results Last 24 Hours Test 10/13/16 07:08 Hemoglobin 6.8 g/dL Hematocrit 20.5 % Assessment and Plan Problem List Medical Problems: (1) Precordial chest pain Status: Acute (2) Vomiting Status: Acute Post- Day#: 1 Continue Routine Care: Plan d/c today. Patient is essentially asymptomatic from h/h standpoint. Did educate that if she gets home and feels poorly may need to consider transfusion , however, see no reason for such today. d/c instructions given. call with problems.
[2016-10-13 11:40] VITALS: BP 138/78; PULSE 92; TEMP 36.9; O2SAT 99
[2016-10-13 12:30] VITALS: BP_DIAS 78; PULSE 92; TEMP 36.9
[2016-10-15] MEDS ORDERED: PEDICHW53 PO (15:45)
== END 2016-10-13 13:20 | disposition home or self-care (01) | DRG 775 ==
LOC: C.OPB 12:33 → C.LD 12:34 → C.OPB 13:41 → C.LD 13:41 → C.OBG 10-12 01:54
PROVIDERS: ADMIT Obstetrics & Gynecology; ATTEND Obstetrics & Gynecology
PROC: 0HQ9XZZ Repair Perineum Skin, External Approach (ICD-10-PCS; principal; 2016-10-11)
PROC: 10E0XZZ Delivery of Products of Conception, External Approach (ICD-10-PCS; principal; 2016-10-11)
DX: O42.92 Full-term premature rupture of membranes, unspecified as to length of time between rupture and onset of labor (principal); O70.0 First degree perineal laceration during delivery; O69.82X0 Labor and delivery complicated by other cord entanglement, without compression, not applicable or unspecified; Z3A.39 39 weeks gestation of pregnancy; Z37.0 Single live birth

== ENCOUNTER 2016-10-15 20:42 | Emergency (ER) | payer OTHER ==
[~2016-10-15] VITALS: Ht 152.4 cm; Wt 76.3 kg
[2016-10-15 20:45] VITALS: Ht 152.4 cm; Wt 76.3 kg
[2016-10-15] MEDS ORDERED: SODIUM CHLORIDE 0.9% 1000ML 1,000 ML IV STA (21:18)
[2016-10-15 21:38] LABS: HEMATOCRIT 22.6 % (37-47); MEAN CELL VOLUME 80.1 fL (80-100); MEAN CORPUSCULAR HEMOGLOBIN 26.6 pg (25-34); MEAN CORPUSCULAR HGB CONC 33.2 g/dl (32-36); MEAN PLATELET VOLUME 8.7 fL (7.4-10.4); PLATELET COUNT 359 K/uL (130-400); RED BLOOD COUNT 2.82 M/uL (4.2-5.4); WHITE BLOOD COUNT 12.88 K/uL (4.8-10.8)
[2016-10-15 21:52] LABS: BUN/CREATININE RATIO 21.3 (10-20); CALCIUM 8.6 mg/dl (8.5-10.1); CREATININE 0.68 mg/dl (0.60-1.20); POTASSIUM 3.8 mmol/L (3.5-5.1)
[2016-10-15 22:07] LABS: URINE APPEARANCE CLOUDY (CLEAR); URINE BILIRUBIN NEG (NEG); URINE COLOR YELLOW; URINE EPITHELIAL CELL AUTO >30 /lpf (0-5); URINE NITRITE NEG (NEG); URINE SPECIFIC GRAVITY 1.038 (1.000-1.030); UROBILINOGEN NEG (NEG)
[2016-10-15 22:09] LABS: MANUAL MICROSCOPIC REQUIRED? NO; REVIEW REQ? YES
[2016-10-15] MEDS ORDERED: IBUPROFEN 600 MG TAB PO STA (22:12)
[2016-10-15 22:19] LABS: URINE MUCUS PRESENT (NONE PRSENT)
--- NOTE | 2016-10-15 22:55 | EMERGENCY ROOM VISIT NOTE ---
ED Visit Note First contact with patient: 20:49 CHIEF COMPLAINT: Labial pain, 4 days HISTORY OF PRESENT ILLNESS: Patient is a four-day 21-year-old white female who presents to the emergency department for evaluation of labial/ vaginal pain. Patient delivered a healthy daughter via spontaneous vaginal delivery on 10/11/2016. She had an epidural for anesthesia, and sustained a small, first degree tear according to delivery note. Labor was uncomplicated, patient did well in the hospital. She does note that she was anemic, and had a hemoglobin of 6.8 at discharge, but was reportedly asymptomatic, and thus they felt that she did not require transfusion. The patient reports last evening into today, she has developed some vaginal/labial pain. She describes it as an external discomfort, and reports that it is typically only when she voids and the urine strikes the labia. She denies urinary frequency or urgency or other UTI symptoms. She notes pelvic discomfort and has intermittent cramping, but this is tolerable. She really complains more of external irritation after voiding, that she states becomes very severe. She states her bleeding has been controlled. She is breast-feeding. She has applied ice to the peroneal area, soaked in a warm bath, and has taken Motrin. She denies any rectal pain. She has not had any fevers. No foul-smelling discharge or drainage. She denies any back pain. She does note a mild generalized headache. She reports having poor sleep due to the circumstances, but she reports that she has been eating and drinking well, and increasing her clear fluid intake. REVIEW OF SYSTEMS: Review of systems as per HPI. All other systems reviewed were negative. 10 systems reviewed. PMH: Electronic medical records are reviewed and summarized as above/below. See Problem List. SOCIAL HISTORY: Patient lives at home with her family. She is a student. She does not smoke. PHYSICAL EXAM: Vital Signs: Reviewed Nurse's notes. CONSTITUTIONAL: Patient is a well-appearing, tearful 21-year-old white female who is awake and alert and in no acute distress. NECK: Supple without lymphadenopathy. No thyromegaly. No meningeal signs. Full active range of motion without discomfort. CARDIOVASCULAR: Tachycardic rate and rhythm, with normal S1 and S2, no murmur or gallop or rub is heard. No carotid bruits auscultated. No JVD. Peripheral pulses easily palpable. RESPIRATORY: Breath sounds equal and clear to auscultation without wheezes, rales, or rhonchi heard. Full and equal chest expansion without accessory muscle use or retractions. ABDOMEN: Bowel sounds are present. Abdomen is soft, nontender and nondistended. No guarding or rebound. : Examination of the external genitalia show slight swelling of the labia minora and majora. There is no erythema, increased warmth or induration. No foul-smelling discharge. Rectal area is without hemorrhoids or swelling. INTEGUMENTARY: No lesions or rash, normal skin turgor. LYMPH: No lymphadenopathy. EMERGENCY DEPARTMENT COURSE: The patient was seen and evaluated as above. IV lock was initiated. She was hydrated with a liter bolus of normal saline solution. She was given ibuprofen for discomfort. CBC, BMP, and urinalysis were obtained. She was straight cathed for a urine given her lochia. H&H has improved to 7.5, up from 6.82 days ago. Electrolytes are without significant abnormality. BUN and creatinine are normal. Urine is not overtly indicative of infection. Trace ketones and 1+ bacteria noted with greater than 30 epithelial cells. No nitrates, leuk esterase or WBCs. Laboratory studies were reviewed with the patient and her mother. She was reassured. Differential diagnoses entertained included UTI, pyelonephritis, endometritis, infection, wound dehiscence, localized irritation/edema, among others. She was encouraged to continue perineal care as instructed on L&D, use Tylenol and ibuprofen for discomfort, and was advised to follow-up with CLOTH GRADER by phone tomorrow to schedule a follow-up appointment. Medication reconciliation: I attest that I have personally reviewed the patient' s current medication list. Blood pressure screening : Patient was found to have normal blood pressure on screening and does not require follow-up. Problem List Medical Problems: (1) Abdominal pain Status: Resolved (2) Anxiety State Nos Status: Chronic (3) Hypertension affecting Status: Resolved (4) Kidney stones Status: Resolved (5) Precordial chest pain Status: Resolved (6) PROM (premature rupture of membranes) Status: Resolved (7) Strep pharyngitis Status: Resolved (8) Vaginal bleeding Status: Resolved (9) Vomiting Status: Resolved Surgical Problems: (1) History of appendectomy Status: Resolved Current/Historical Medications Scheduled Pediatric Multiple Vitamin W/ (Flintstones Gummies), 2 TABS PO DAILY Allergies Coded Allergies: No Known Allergies (Unverified , 09/24/16) Vital Signs Date Time Temp Pulse Resp B/P (MAP) Pulse Ox O2 Delivery O2 Flow Rate FiO2 10/15/16 22:32 139 10/15/16 22:27 140 18 123/77 98 Room Air 10/15/16 21:55 132 18 131/82 98 Room Air 10/15/16 20:45 36.7 131 20 145/91 98 Room Air Laboratory Results 10/15/16 21:27 10/15/16 21:27 Test 10/15/16 21:27 10/15/16 21:50 Red Blood Count 2.82 M/uL (4.2-5.4) Mean Corpuscular Volume 80.1 fL (80-100) Mean Corpuscular Hemoglobin 26.6 pg (25-34) Mean Corpuscular Hemoglobin Concent 33.2 g/dl (32-36) RDW Standard Deviation 39.9 fL (36.4-46.3) RDW Coefficient of Variation 14.2 % (11.5-14.5) Mean Platelet Volume 8.7 fL (7.4-10.4) Anion Gap 9.0 mmol/L (3-11) Est Creatinine Clear Calc Drug Dose 120.5 ml/min Estimated GFR () 145.9 Estimated GFR (Non- 125.9 BUN/Creatinine Ratio 21.3 (10-20) Calcium Level 8.6 mg/dl (8.5-10.1) Urine Color YELLOW Urine Appearance CLOUDY (CLEAR) Urine pH 6.0 (4.5-7.5) Urine Specific [place] 1.038 (1.000-1.030) Urine Protein TRACE (NEG) Urine Glucose (UA) NEG (NEG) Urine Ketones TRACE (NEG) Urine Occult Blood NEG (NEG) Urine Nitrite NEG (NEG) Urine Bilirubin NEG (NEG) Urine Urobilinogen NEG (NEG) Urine Leukocyte Esterase NEG (NEG) Urine WBC (Auto) 1-5 /hpf (0-5) Urine RBC (Auto) 0-4 /hpf (0-4) Urine Hyaline Casts (Auto) 1-5 /lpf (0-5) Urine Epithelial Cells (Auto) >30 /lpf (0-5) Urine Bacteria (Auto) 1+ (NEG) Urine Renal Epithelial Cells /lpf (0-5) Urine Mucus PRESENT (NONE PRSENT) Medications Administered Medications (Trade) Dose Ordered Sig/Luz Marina Route Start Time Stop Time Status Last Admin Dose Admin Sodium Chloride 1,000 ml @ 999 mls/hr Q1H1M STAT IV 10/15/16 21:18 10/15/16 22:18 DC 10/15/16 21:18 999 MLS/HR Ibuprofen (Motrin Tab) 600 mg NOW STAT PO 10/15/16 22:12 10/15/16 22:13 DC 10/15/16 22:23 600 MG Departure Information Impression Primary Impression: Labial pain Referrals Karma RamirezNMackenziePMackenzie (PCP) Patient Instructions [facility] Additional Instructions Ibuprofen(Motrin, Advil) may be used for fever or pain. Use 600mg every six hours as needed. Take with food. Avoid using more than 2400mg in a 24 hour period. Do not use 2400mg per day for more than three consecutive days without physician direction. Prolonged inappropriate use can lead to stomach upset or ulcers. (AND/OR) Acetaminophen(Tylenol) may be used for fever or pain. Use 1000mg every six hours as needed. Avoid using more than 3000mg in a 24 hour period. Rest and avoid any heavy lifting (nothing heavier than baby) or strenuous activity. Continue perineal care according to CL[facility] GRADER. Ice as needed. Drink plenty of fluids. Diet as tolerated. Follow up with CLOTH GRADER by phone tomorrow to schedule a follow-up appointment. Return to the ED as needed.
[2016-10-15 23:01] VITALS: BP 118/84; PULSE 121; TEMP 36.7; O2SAT 99
== END 2016-10-15 23:02 | disposition home or self-care (01) ==
LOC: C.EDB 20:43 → C.EDA 23:02
DX: O90.89 Other complications of the puerperium, not elsewhere classified (principal); R10.2 Pelvic and perineal pain; F41.9 Anxiety disorder, unspecified; Z87.442 Personal history of urinary calculi; Z98.890 Other specified postprocedural states

== ENCOUNTER → 2017-03-21 | Outpatient (CLI) | payer OTHER ==
[2017-03-21 12:50] LABS: BASO ABS # 0.07 K/uL (0-0.2); EOS % 2.1 %; EOS ABS # 0.15 K/uL (0-0.5); HEMATOCRIT 36.5 % (37-47); IG# 0.01 K/uL (0.00-0.02); LYMPH % 27.3 %; LYMPH ABS # 1.98 K/uL (1.2-3.4); MEAN CELL VOLUME 74.3 fL (80-100); MEAN CORPUSCULAR HEMOGLOBIN 24.4 pg (25-34); MEAN CORPUSCULAR HGB CONC 32.9 g/dl (32-36); MEAN PLATELET VOLUME 10.3 fL (7.4-10.4); MONO % 7.7 %; MONO ABS # 0.56 K/uL (0.11-0.59); NEUT % 61.8 %; NEUT ABS # 4.49 K/uL (1.4-6.5); PLATELET COUNT 317 K/uL (130-400); RED CELL DISTRIBUTION WIDTH CV 17.8 % (11.5-14.5); RED CELL DISTRIBUTION WIDTH SD 48.7 fL (36.4-46.3); WHITE BLOOD COUNT 7.26 K/uL (4.8-10.8)
== END | disposition home or self-care (01) ==
LOC: C.LABPVFM 07:58
PROVIDERS: ATTEND Nurse Practitioner Family
DX: D50.9 Iron deficiency anemia, unspecified (principal); R53.83 Other fatigue

== ENCOUNTER → 2017-03-27 | Outpatient (CLI) | payer OTHER ==
[2017-03-27 17:39] LABS: BASO % 0.2 %; BASO ABS # 0.02 K/uL (0-0.2); EOS % 0.4 %; EOS ABS # 0.04 K/uL (0-0.5); HEMATOCRIT 38.1 % (37-47); HEMOGLOBIN 12.8 g/dL (12.0-16.0); IG# 0.03 K/uL (0.00-0.02); LYMPH % 10.8 %; MEAN CELL VOLUME 74.6 fL (80-100); MEAN CORPUSCULAR HGB CONC 33.6 g/dl (32-36); MEAN PLATELET VOLUME 9.8 fL (7.4-10.4); MONO % 5.4 %; NEUT % 82.9 %; NEUT ABS # 7.71 K/uL (1.4-6.5); PLATELET COUNT 315 K/uL (130-400); RED CELL DISTRIBUTION WIDTH CV 17.1 % (11.5-14.5); RED CELL DISTRIBUTION WIDTH SD 46.7 fL (36.4-46.3)
[2017-03-27 18:04] LABS: BLOOD UREA NITROGEN 14 mg/dl (7-18); CALCIUM 9.1 mg/dl (8.5-10.1); CARBON DIOXIDE 21 mmol/L (21-32); CREATININE 0.66 mg/dl (0.60-1.20); GLUCOSE 92 mg/dl (70-99); POTASSIUM 3.8 mmol/L (3.5-5.1); SODIUM 136 mmol/L (136-145)
== END | disposition home or self-care (01) ==
LOC: C.LABPVFM 16:05
PROVIDERS: ATTEND Family Medicine
DX: J20.9 Acute bronchitis, unspecified (principal)

== ENCOUNTER 2018-12-19 12:30 | Inpatient (IN) ==
[2018-12-19] MEDS ORDERED: LACTATED RINGER'S 1,000 ML IV PRN (12:37)
[2018-12-19] MEDS ORDERED: OXYTOCIN 30 UNITS/500 ML BAG IV PRN ×3 (12:37→21:56)
--- NOTE | 2018-12-19 12:48 | History & Physical Report ---
Date of Service December 19, 2018 Assessment & Plan (1) Normal in multigravida, antepartum: 23yo at 37.6 weeks GA. IOL for gHTN. 1. Fetus: Cat 1 2. Labor: Oxytocin. AROM when able 3. PIH: Stable at present. PIH labs pending. Continue to monitor 4. GBS negative History of Present Illness Primary Care Provider: Roopa Goldsmith MD 23yo at 37.6 weeks GA. IOL for gHTN. Patient met diagnostic criteria for gHTN today in clinic and sent for IOL. Denies PIH symptoms. complicated by resolved pyelectasis. Hx of prior uncomplicated . Allergies Allergy/AdvReac Type Severity Reaction Status Date / Time No Known Allergies Allergy Verified 12/19/18 11:48 Home Medications Home Medications Medication Instructions Recorded Confirmed Type fluoxetine 20 mg capsule 20 mg PO DAILY #30 cap 09/07/18 12/19/18 Rx pediatric multivitamin no.76 1 tab PO DAILY 09/07/18 12/19/18 History chewable tablet ferrous sulfate PO 11/19/18 12/19/18 History Patient History Medical History Tachycardia (Chronic) Migraine headache (Acute) Iron deficiency anemia (Acute) Depression with anxiety (Chronic) Abdominal pain (Resolved) Strep pharyngitis (Resolved) PROM (premature rupture of membranes) (Resolved) Surgical History S/P appendectomy S/P tonsillectomy S/P wisdom tooth extraction Family History Mother Depression Grandfather (Maternal) Prostate cancer Father Hx of migraines Other No pertinent family history Social History Preferred Language: Citizen Of [place] Communication Ability: Effective Beliefs That Will Affect Care: None marital status: Current Living Situation: Family Current Living Situation Comment: spouse and daughter Feels Safe at Home: Yes Smoking Status: Never smoker Do You Dip or Chew Tobacco: No ; Second Hand Exposure: No ; Hx Alcohol Use: No Hx Substance Use: No Physical Exam Constitutional: WD/WN, vitals as above Gastrointestinal (Abdomen): Inspection/Auscultation: abdomen normal to inspection Percussion/Palpation: abdomen soft; abdomen nontender, no guarding and abdomen not rigid Neurologic: patellar DTR's 2+ bilat, sensation intact Genitourinary: OB Exam Abdomen: + vertex Manual OB Exam: + cervical dilation 4 cm, + cervical effacement 60% and + station -2 OB Exam Monitor Tracing: + external FHT monitor used, + external uterine monitor used, + category I and + normal FHT variability; no late decelerations present and no variable decelerations
[2018-12-19 12:58] LABS: Hematocrit (blood only) 30.7 % (37-47); Hemoglobin 9.9 g/dL (12.0-16.0); Mean Corpuscular Hemoglobin 25.1 pg (25-34); Mean Corpuscular Volume 77.9 fL (80-100); Mean Platelet Volume 9.7 fL (7.4-10.4); Platelet Count 256 K/uL (130-400); RDW Coefficient of Variation 13.5 % (11.5-14.5); RDW Standard Deviation 38.3 fL (36.4-46.3); Red Blood Count 3.94 M/uL (4.2-5.4); White Blood Count 9.28 K/uL (4.8-10.8)
[2018-12-19 13:07] LABS: Mean Corpuscular Hgb Conc 32.2 g/dL (32-36)
[2018-12-19 13:17] LABS: Alanine Aminotransferase 12 U/L (12-78); Aspartate Aminotransferase 12 U/L (15-37); Est GFR (African American) > 150.0; Est GFR (Non-African American) 133.1
[2018-12-19 13:18] LABS: Protein Creatinine Ratio Urine 0.3 (0-0.2); Total Protein Urine Random 26.1 mg/dl (0-11.9)
--- NOTE | 2018-12-19 15:22 | Labor Progress Brief Note ---
Date of Service December 19, 2018 Subjective Reason For Note: Routine Evaluation Doing well, feeling contractions. Unsure if she will want an epidural, discussed that if she decides to get an epidural there might be some time before it is placed and she would notice pain relief. Assessment & Plan (1) : 23 yo @ 37w6d complicated by gestational HTN and tachycardia SVE: 4/60/-2 vertex FHT: category 1 - BP currently 125/78 - Pitocin started @ 2mu/min. & up by 2 mu/min. to a max. of 30 mu/min. - GBS negative, Blood Type AB+ - Feels well today. Eating well, voiding well, ambulating well. - Pain well controlled. Physical Exam Physical Exam: General: Alert, oriented. No acute distress. Respiratory: No increased work of breathing. Symmetrical chest rise. No respiratory distress. SVE: 4/60/-2 vertex Fetus: baseline rate: 140 bpm variability: minimal no late or variable decelerations category 1 tracing Results & Data Vital Signs (Past 12 Hours) Vital Signs Temp Pulse Resp BP 12/19/18 15:04 93 H 125/78 12/19/18 13:04 37.2 C 20 12/19/18 12:58 111 H 127/85 12/19/18 12:46 114 H 130/87 12/19/18 12:40 37.2 C 18 Resident Activity Tracking Resident Involvement: Resident Care Provided Care Provided: OB Delivery
--- NOTE | 2018-12-19 16:19 | Labor Progress Brief Note ---
Date of Service December 19, 2018 Subjective Reason For Note: Routine Evaluation Assessment & Plan (1) Normal in multigravida, antepartum: 23yo at 37.6 weeks GA. IOL for gHTN. 1. Fetus: Cat 1 2. Labor: Oxytocin. AROM clr 3. PIH: Stable at present. PIH labs pending. Continue to monitor 4. GBS negative Physical Exam Genitourinary: OB Exam Abdomen: + vertex Manual OB Exam: + cervical dilation 5 cm, + cervical effacement 70%, + station -2 and + amniotic fluid clear OB Exam Monitor Tracing: + external FHT monitor used, + external uterine monitor used, + category I and + normal FHT variability; no late decelerations present and no variable decelerations Results & Data Vital Signs (Past 12 Hours) Vital Signs Temp Pulse Resp BP 12/19/18 15:56 94 H 124/79 12/19/18 15:04 93 H 125/78 12/19/18 13:04 37.2 C 20 12/19/18 12:58 111 H 127/85 12/19/18 12:46 114 H 130/87 12/19/18 12:40 37.2 C 18
--- NOTE | 2018-12-19 18:13 | Labor Progress Brief Note ---
Date of Service December 19, 2018 Subjective Reason For Note: Routine Evaluation Assessment & Plan (1) Gestational hypertension without significant proteinuria: 23yo at 37.6 weeks GA. IOL for gHTN. 1. Fetus: Cat 1 2. Labor: Progressing, continue oxytocin. S/p AROM 3. PIH: Stable at present. PIH labs pending. Continue to monitor 4. GBS negative (2) Normal in multigravida, antepartum: Physical Exam Genitourinary: OB Exam Abdomen: + vertex Manual OB Exam: + cervical dilation 6 cm, + cervical effacement 90%, + station -1 and + amniotic fluid clear OB Exam Monitor Tracing: + external FHT monitor used, + external uterine monitor used and + category I Results & Data Vital Signs (Past 12 Hours) Vital Signs Temp Pulse Resp BP 12/19/18 16:43 92 H 137/85 12/19/18 16:11 18 12/19/18 15:56 94 H 124/79 12/19/18 15:04 93 H 125/78 12/19/18 13:04 37.2 C 20 12/19/18 12:58 111 H 127/85 12/19/18 12:46 114 H 130/87 12/19/18 12:40 37.2 C 18
[2018-12-19] MEDS ORDERED: fentaNYL citrate 100 MCG/2 ML VIAL ONE (18:41)
[2018-12-19] MEDS ORDERED: fentaNYL 2MCG/ML ROPIV 1.25MG/ML 100 ML BAG EPI ONE (18:41)
[2018-12-19] MEDS ORDERED: BUPIVACAINE 0.25% 30 ML VIAL ONE (18:41)
[2018-12-19] MEDS ORDERED: ePHEDrine sulfate 50 MG/ML AMP ONE (18:41)
--- NOTE | 2018-12-19 19:03 | Anesthesiology Consultation ---
Date of Service December 19, 2018 Assessment & Plan ASA ASA2 Proposed Anesthesia Anesthesia Type: Labor Epidural Risk / Benefits Reviewed With: PT / POA / Parent / Guardian, Accepts Plan and Informed Consent Obtained History Height/Weight Height: 5 ft 1 in Weight: 87.997 kg Allergies Allergy/AdvReac Type Severity Reaction Status Date / Time nickel Allergy Rash Verified 12/19/18 14:09 Medications Home Medications Medication Instructions Recorded Confirmed Last Taken fluoxetine 20 mg capsule 20 mg PO DAILY #30 cap 09/07/18 12/19/18 Unknown pediatric multivitamin no.76 1 tab PO DAILY 09/07/18 12/19/18 Unknown chewable tablet ferrous sulfate 325 mg PO DAILY 11/19/18 12/19/18 Unknown Active Medications Generic Name Dose Route Start Last Admin Trade Name Freq PRN Reason Stop Dose Admin Lactated Ringer's 1,000 mls @ 125 mls/hr 12/19/18 12:37 12/19/18 18:45 Lr IV 12/21/18 12:36 999 mls/hr .Q8H PRN Titration L&D Protocol Protocol Oxytocin 30 units in 500 mls @ 6 mls/hr 12/19/18 12:38 12/19/18 19:00 Pitocin IV 12/21/18 12:37 0.36 units/hr .Q24H PRN 6 mls/hr Labor Induction/Augmentation Titration Protocol 0.36 UNITS/HR Past Medical History Medical History Tachycardia (Chronic) Migraine headache (Acute) Iron deficiency anemia (Acute) Depression with anxiety (Chronic) Abdominal pain (Resolved) Strep pharyngitis (Resolved) PROM (premature rupture of membranes) (Resolved) Past Family History Family History Mother Depression Grandfather (Maternal) Prostate cancer Father Hx of migraines Other No pertinent family history Past Surgical History Surgical History S/P appendectomy S/P tonsillectomy S/P wisdom tooth extraction Social History Smoking Status: Never smoker Do You Dip or Chew Tobacco: No Hx Alcohol Use: No Hx Substance Use: No Physical Exam Vital Signs Last Vital Signs Temp 37.2 C 12/19/18 13:04 Pulse 92 H 12/19/18 19:29 Resp 18 12/19/18 16:11 BP 124/72 12/19/18 19:29 Pulse Ox 100 12/19/18 19:27 Testing Laboratory Results 12/19/18 12:48 12/19/18 12:48
[2018-12-19] MEDS ORDERED: fentaNYL 2MCG/ML ROPIV 1.25MG/ML 100 ML BAG EPI PRN (20:11)
[2018-12-19] MEDS ORDERED: NALOXONE HCL 1 MG in SODIUM CHLORIDE 0.9% 1000ML 1,000 ML IV PRN (20:11)
[2018-12-19] MEDS ORDERED: PROMETHAZINE HCL 25 MG in SODIUM CHLORIDE 0.9% 50 ML IV PRN (20:11)
[2018-12-19] MEDS ORDERED: ePHEDrine sulfate 50 MG/ML AMP IV PRN (20:11)
[2018-12-19] MEDS ORDERED: NALOXONE HCL 0.4 MG/1 ML VIAL/CARP IV PRN (20:11)
[2018-12-19] MEDS ORDERED: NALBUPHINE HCL INJ 10 MG/ML AMP IV PRN (20:11)
[2018-12-19] MEDS ORDERED: ONDANSETRON INJ 2 MG/ML 2 ML VIAL IV PRN ×2 (20:11→23:25)
[2018-12-19] MEDS ORDERED: DiphenhydrAMINE HCL 50 MG/ML VIAL IV PRN (20:11)
[2018-12-19] MEDS ORDERED: METHYLERGONOVINE MALEATE 0.2 MG/ML AMP ONE (21:50)
[2018-12-19] MEDS ORDERED: ACETAMINOPHEN 325 MG TAB PO PRN (21:56)
[2018-12-19] MEDS ORDERED: SUPERCREAM 0.870% 15 GM JAR EXT PRN (21:56)
[2018-12-19] MEDS ORDERED: DIPHTHERIA/TETANUS/PERTUSSIS 0.5 ML SYR/VIAL IM ONE (21:56)
[2018-12-19] MEDS ORDERED: HYDROCORTISONE ACETATE 25 MG SUPP PR PRN (21:56)
[2018-12-19] MEDS ORDERED: BENZOCAINE 20% AER SPR 82.5 GM CAN EXT PRN (21:56)
[2018-12-19] MEDS ORDERED: METHYLERGONOVINE MALEATE 0.2 MG/ML AMP IM STA (22:11)
[2018-12-19] MEDS ORDERED: miSOPROStoL 200 MCG TAB PR ONE (22:11)
--- NOTE | 2018-12-19 22:45 | Delivery Summary ---
DATE OF OPERATION: 12/19/2018 PROCEDURE: Normal spontaneous vaginal delivery. SURGEON: Jorge Luis Tellez MD PREOPERATIVE DIAGNOSES: 1. Single intrauterine at 37 weeks 6 days gestational age. 2. Gestational hypertension. 3. History of hemorrhage. POSTOPERATIVE DIAGNOSES: 1. Single intrauterine at 37 weeks 6 days gestational age. 2. Gestational hypertension. 3. History of hemorrhage. 4. Status post delivery. ESTIMATED BLOOD LOSS: 400 mL. DRAINS: None. FLUIDS: Continuous lactated Ringer. URINE OUTPUT: 300 mL via straight cath at the completion of the case. COMPLICATIONS: None. FINDINGS: Viable male infant with weight pending, Apgars of 8 and 9 at 1 and 5 minutes respectively. INDICATIONS: Stephani is a 23-year-old G2, P1 at 37 weeks 6 days gestational age, who presented for induction of labor with gestational hypertension. The patient was noted to have elevated blood pressures in the mild range in the 140s and 150s/90s on two separate occasions over 4 hours apart. The patient was negative for any other symptoms or signs of preeclampsia. The patient was admitted and started on oxytocin per regular protocol. On initial evaluation, she was found to be 4 cm dilated, 86% effaced, -2 station. She was started on oxytocin per regular protocol and underwent artificial rupture of membranes for clear fluid. The patient continued to progress in labor and ultimately received an epidural for anesthesia. She continued to progress to complete complete +1 station, at which time she began to push and pushed over approximately 9 contractions to achieve delivery. DESCRIPTION OF PROCEDURE: The patient progressed to 10 cm dilated, 100% effaced, +1 station, pushed over intact perineum with epidural anesthesia and delivered a viable male with weight and Apgars as noted above. Head of the delivered in TJ position, rest into right transverse. Nuchal cord x1 was noted which was easily reduced. Body and shoulders quickly followed. was delivered to the maternal abdomen and was noted to be vigorous soon after delivery. A 1-minute delayed cord clamping was initiated. The cord was double clamped and cut. Cord blood was then obtained. Attention was then turned to deliver the placenta, which delivered intact with 3-vessel cord, gentle cord traction. On inspection of perineum, vagina, and cervix, there was noted to be no lacerations. There was noted to be some lower uterine segment atony and 800 mg of Cytotec was placed per rectum and 1 dose of IM Methergine was given mainly due to the patient's history of hemorrhage with the lower uterine segment atony that was appreciated with mild bleeding. Needle, sponge, and instrument counts were correct at the completion of the case. Both mother and were stable in the immediate post-delivery period. I attest to the content of the Intraoperative Record and any orders documented therein. Any exception s are noted below.
--- NOTE | 2018-12-19 23:46 | Anesthesia Procedure Note ---
Date of Service December 19, 2018 Anesthesia Post Epidural Note Vital Signs Vital Signs: Temp Pulse Resp BP Pulse Ox 36.9 C 67 20 141/86 H 99 12/19/18 21:52 12/19/18 23:38 12/19/18 23:20 12/19/18 23:38 12/19/18 21:47 Pain Intensity Bilateral Abdomen: Pain Intensity: 0 Notes Mental Status: alert / awake / arousable Nausea / Vomiting: adequately controlled Pain: adequately controlled Airway Patency, RR, SpO2: stable & adequate BP & HR: stable & adequate Hydration State: stable & adequate Neuraxial Anesthesia: was administered and sensory block is resolving Anesthetic Complications: no major complications apparent Epidural: Removed without complications and With tip intact
[2018-12-20] MEDS: IBUPROFEN 600 MG TAB PO PRN ×3 (04:06→20:27)
--- NOTE | 2018-12-20 05:59 | Obstetrical Progress Note ---
Date of Service December 20, 2018 Assessment & Plan (1) : 23 yo s/p VD @ 37w6d complicated by gestational HTN and tachycardia PPD#: 1 - GBS negative, Blood Type AB+ - Feels well today. Eating well, voiding well, ambulating well. - Pain well controlled. - Routine care - After discharge will have [address] Tellez. Supervising Physician Co-Signing Physician Notes Patient seen and evaluated and agree with the above findings and plan. Continue post care Subjective Doing well this morning. is going well and bleeding is less than a heavy period. She is having some calf tightness that has been going on since prior to delivery. Pain 3-4/10 and well controlled with Motrin. Review of Systems Review of Systems: Denies fever, chills, sweats Denies shortness of breath, difficulty breathing, chest pain, palpitations, chest pressure. Denies breast pain. Denies dysuria. Denies headache. Physical Exam Physical Exam: General: Alert, oriented. No acute distress. Cardiac: Regular rate and rhythm, no murmurs/rubs/gallops. Respiratory: Clear to auscultation anterior and posteriorly, no wheezes/rales/rhonchi. No increased work of breathing. Symmetrical chest rise. No respiratory distress. Abdomen: Soft, nontender, nondistended. Bowel sounds present. Uterus: Uterine fundus firm, palpable at the umbilicus. Lower Extremities: No lower extremity edema or swelling. No deep calf pain. Yaa's negative bilaterally. Results & Data Vital Signs (Past 12 Hours) Vital Signs Temp Pulse Pulse Resp BP BP Pulse Ox 12/20/18 03:45 36.7 C 83 18 137/87 97 12/20/18 00:55 36.7 C 72 20 128/84 100 12/20/18 00:20 36.9 C 78 20 140/91 12/20/18 00:17 78 140/91 12/19/18 23:53 64 137/88 12/19/18 23:50 64 20 137/88 12/19/18 23:38 67 141/86 H 12/19/18 23:23 105 H 137/85 12/19/18 23:20 71 20 139/93 12/19/18 23:08 71 139/93 12/19/18 22:53 67 138/90 1018/19 22:50 66 18 139/91 1018/19 22:38 66 139/91 1018/19 22:35 74 20 139/90 1018/19 22:23 90 136/91 1018/19 22:22 90 18 136/91 18/19 22:08 74 128/86 1018/19 22:07 74 20 128/86 18/19 21:53 124/84 18/19 21:52 36.9 C 20 124/84 18/19 21:47 90 99 18/19 21:42 84 99 18/19 21:38 94 H 134/75 18/19 21:37 91 H 99 18/19 21:32 93 H 100 18/19 21:27 103 H 100 18/19 21:25 90 133/76 12/19/19 21:22 120 H 99 18/19 21:17 108 H 99 12/19/19 21:15 22 12/19/19 21:14 120 H 94 18/19 21:12 95 H 100 18/19 21:08 113 H 141/78 H 18/19 21:07 120 H 100 18/19 21:02 117 H 100 18/19 21:00 36.7 C 20 12/19/19 20:57 115 H 99 18/19 20:56 91 H 93 18/19 20:53 107 H 121/82 18/19 20:52 102 H 100 18/19 20:47 87 100 18/19 20:45 20 1018/19 20:42 87 100 18/19 20:38 97 H 121/77 18/19 20:37 100 H 100 18/19 20:32 78 100 18/19 20:30 20 18/19 20:27 99 H 100 18/19 20:24 92 H 131/84 18/19 20:22 87 100 18/19 20:17 97 H 100 18/19 20:15 20 18/19 20:12 95 H 100 18/19 20:08 85 123/76 18/19 20:07 74 100 12/19/18 20:02 77 100 12/19/18 20:00 20 12/19/18 19:57 93 H 100 19 19:53 80 123/73 12/19/18 19:52 81 100 19 19:47 85 100 12/19/18 19:45 18 12/19/18 19:42 87 100 12/19/18 19:40 18 12/19/18 19:37 93 H 125/64 100 12/19/18 19:36 93 H 121/75 12/19/18 19:35 20 12/19/18 19:32 93 H 100 12/19/18 19:30 36.7 C 20 12/19/18 19:29 92 H 124/72 12/19/18 19:27 98 H 127/82 100 12/19/18 19:25 79 20 125/78 12/19/18 19:23 85 123/74 12/19/18 19:22 76 100 12/19/18 19:21 73 124/67 12/19/18 19:20 20 12/19/18 19:19 67 127/76 12/19/18 19:17 82 98 12/19/18 19:12 94 H 100 12/19/18 19:07 92 H 100 12/19/18 19:03 74 129/80 12/19/18 19:02 90 99 12/19/18 19:00 36.8 C 12/19/18 18:57 75 100 12/19/18 18:52 100 H 123/73 99 12/19/18 18:47 116 H 98 12/19/18 18:46 88 141/80 H 12/19/18 18:45 86 90 PG Care Time/CCT Total # of Minutes Spent Total Time Spent with Patient: Total time spent is greater than 50% in coordination of care (as documented) at patient's floor/unit and/or counseling patient: Resident Activity Tracking Resident Involvement: Resident Care Provided Care Provided: OB Delivery
[2018-12-20 06:51] LABS: Hematocrit (blood only) 27.5 % (37-47); Hemoglobin 9.2 g/dL (12.0-16.0); Mean Corpuscular Hemoglobin 25.7 pg (25-34); Mean Corpuscular Hgb Conc 33.5 g/dL (32-36); Mean Corpuscular Volume 76.8 fL (80-100); Mean Platelet Volume 9.8 fL (7.4-10.4); Platelet Count 228 K/uL (130-400); RDW Coefficient of Variation 13.4 % (11.5-14.5); RDW Standard Deviation 37.6 fL (36.4-46.3); Red Blood Count 3.58 M/uL (4.2-5.4); White Blood Count 11.66 K/uL (4.8-10.8)
[2018-12-20] MEDS: DOCUSATE SODIUM 100 MG CAP PO SCH ×2 (07:49→20:26)
[2018-12-20] MEDS: PRENATAL VITAMIN 1 TAB PO SCH (07:49)
[2018-12-20] MEDS: FLUOXETINE HCL 20 MG CAP PO SCH (07:49)
[2018-12-20] MEDS ORDERED: bisacodyL 5 MG TABEC PO SCH (20:00)
[2018-12-21 06:38] LABS: Hematocrit (blood only) 27.2 % (37-47); Hemoglobin 8.9 g/dL (12.0-16.0)
--- NOTE | 2018-12-21 06:42 | Obstetrical Progress Note ---
Date of Service December 21, 2018 Assessment & Plan (1) Gestational hypertension without significant proteinuria: PPD#2 . Ready for discharge today; instructions reviewed. Trimester: third trimester Qualified Code(s): O13.3 - Gestational [-induced] hypertension without significant proteinuria, third trimester Present on Admission?: Yes Subjective Ambulation: ambulating normally Voiding: no voiding problems Passing Gas:: Yes Diet Tolerance:: regular diet Lochia:: Small Feeding Type:: breast feeding Physical Exam Constitutional WD/WN, vitals as above Eyes PERRL, conjunctivae normal, anicteric sclerae Neck normal visual inspection Respiratory normal respiratory effort and able to speak in complete sentences; no respiratory distress and no labored breathing Cardiovascular Rate/Rhythm: regular rate and regular rhythm Extremities: no edema Chest (Breasts) Chest: normal inspection of chest Gastrointestinal (Abdomen) Inspection/Auscultation: abdomen normal to inspection Soft, postgravid Psychiatric A+Ox3, euthymic affect Genitourinary OB Exam Abdomen: + fundal height Fundus: + firm and + relation to umbilicus (fundus just below umbilicus); not tender Results & Data Vital Signs (Past 12 Hours) Vital Signs Temp Pulse Resp BP Pulse Ox 12/21/18 00:00 98.1 F 94 H 18 125/79 12/20/18 20:00 97.9 F 84 20 124/85 99
[2018-12-21] MEDS: FLUOXETINE HCL 20 MG CAP PO SCH (08:37)
[2018-12-21] MEDS: DOCUSATE SODIUM 100 MG CAP PO SCH (08:37)
[2018-12-21] MEDS ORDERED: bisacodyL 10 MG SUPP PR PRN (09:00)
[2018-12-21] MEDS: PRENATAL VITAMIN 1 TAB PO SCH (09:36)
== END 2018-12-21 11:40 | disposition home or self-care (01) | DRG 807 ==
LOC: 4S1 12:30 → 4S2 12-20 01:00

== ENCOUNTER 2022-01-31 14:58 | Inpatient (IN) ==
[2022-01-31] MEDS ORDERED: LIDOCAINE 1% LOCAL 20 ML VIAL INFIL PRN (15:04)
[2022-01-31] MEDS ORDERED: OXYTOCIN 30 UNITS/500 ML BAG IV PRN ×3 (15:04→23:46)
--- NOTE | 2022-01-31 15:09 | History & Physical Report ---
Date of Service January 31, 2022 Assessment & Plan (1) with 39 completed weeks gestation: (2) Gestational hypertension affecting third : Plan Given two elevated blood pressures more than 4 hours apart, the patient has the diagnosis of ghtn. this has occured in her last two pregnancies as well. She has no s/s of pet. Plan to admit for induction since over 39 weeks. Will not repeat labs as clinical situation has not changed and normal this am. Plan pitocin indution, then arom. epidural on request. anticipate . Admission and Anticipated Discharge Date Admission Date: January 31, 2022 History of Present Illness Chief Complaint: elevated blood pressure Primary Care Provider: Roopa Goldsmith MD Patient is a 26yowf with iup at 39 1/7 weeks who presents to labor and delivery from the office with elevated blood pressures. Has not felt well the past couple of days. Has had vivas throughout the , but more persistent in the last couple of days, notes some flashing lights in vision and increase in swelling in hands/feet. Initial blood pressure was 1608/106 Repeat a few minutes later was normal 128/86. Patient was sent home to return in 4 hours for repeat pressure. IN the meantime had normal labs done. Return blood pressure was 150/80 after sitting for over 10 minutes. Patient has a hx of blood pressure issues in both of her previous pregnancies and this is the latest she has gone. Notes good fm. Was 2cm in the office. Occasional contractions. no lof/vb. and Delivery Plans Hx GHTN baseline labs baseline 24 hour urine (81.2) baby asa at 12 weeks. Rubella Equivocal *PPX MMR. OB Labs: Blood Type AB Positive 06/29/21 Antibody Screen NEGATIVE 06/29/21 Hemoglobin 10.3 g/dl (12.0-16.0) L 11/15/21 Hematocrit 31.8 % (34.1-44.9) L 11/15/21 Mean Corpuscular Volume 81.5 fL (80-100) 06/29/21 Platelet Count 314 K/uL (130-400) 06/29/21 Rubella IgG Antibody Equivocal (Immune) L 06/29/21 Rapid Plasma Reagin Nonreactive (Nonreactive) 06/29/21 Hepatitis B Surface Antigen Neg (Neg) 06/05/18 Hepatitis B Surface Antigen. NON-REACTIVE (NON-REACTIVE) 06/29/21 Hepatitis C Antibody NEG (NEG) 12/05/16 Hepatitis C Antibody (EIA) NON-REACTIVE (NON-REACTIVE) 06/29/21 HIV (1&2) Ab and P24 Ag, 4th Gener Neg (Neg) 06/05/18 A HIV (1&2) Ag and Ab Confirmation NON-REACTIVE (NON-REACTIVE) 06/29/21 Glucose 1 Hour 50 gm Load 157 mg/dl (70-130) H 09/06/21 OB Optional Labs: Chlamydia trachomatis RNA NOT DETECTED (NOT DETECTED) 06/29/21 Neisseria gonorrhoeae RNA NOT DETECTED (NOT DETECTED) 06/29/21 Thyroid Stimulating Hormone (TSH) 1.140 uIu/ml (0.300-4.500) 10/12/20 Labs Reviewed: declines genetic testing [facility] 06/23 declined cf/sma.--[facility] 06/23 Allergies Allergy/AdvReac Type Severity Reaction Status Date / Time mushroom Allergy Face Verified 01/31/22 08:34 swelling/hives nickel Allergy Rash Verified 01/31/22 08:34 Home Medications Medication Instructions Recorded Confirmed Type prenat.vits,katharine,khg-sjev-uyenn 1 tab PO DAILY 06/20/21 01/31/22 History aspirin 81 mg capsule 81 mg PO DAILY 09/06/21 01/31/22 History sertraline 25 mg tablet (Zoloft) 25 mg PO DAILY #30 tabs 09/28/21 01/31/22 Rx Patient History Medical History Abdominal pain Depression with anxiety Influenza B Iron deficiency anemia Migraine headache PROM (premature rupture of membranes) Strep pharyngitis Tachycardia Surgical History S/P appendectomy S/P tonsillectomy S/P wisdom tooth extraction Family History Mother Depression Hypertension Dyslipidemia Grandfather (Maternal) Prostate cancer Father Hx of migraines Other No pertinent family history Denies family history of Ovarian cancer Myocardial infarction Breast cancer Colorectal cancer Social History Smoking Status: Never smoker Second Hand Exposure: No; Hx Alcohol Use: No Hx Substance Use: No Preferred Language: [place] Leonean Communication Ability: Effective Beliefs That Will Affect Care: None marital status: marital status details: melvin (30) [phone] Current Living Situation: Spouse Current Living Situation Comment: lives spouse and children, 2 cat s 1 dog, spouse to change litter. current occupational status: employed current occupation: [employer] Feels Safe at Home: Yes caffeine: Yes Dental Care, Regularly: No Physical Activity Frequency: Daily Seatbelt Use: always Sunscreen Use: Yes Assistive Devices: None OB History Past Pregnancies Del. Date GA wks Lbr Lgth wt Sex Type del Anes Place Del Prov ? Comment 10/11/16 39 7lb 7oz F Epidu ral [facility] Dr. Alonzo No ppx hemmorhage, ghtn 12/19/18 37 7lb 13.4oz M Ep idural [facility] Kraft No GHTN baby with craniosynostosis Physical Exam Constitutional: WD/WN, vitals as above Cardiovascular: Extremities: + edema (tr); no calf tenderness Gastrointestinal (Abdomen): soft, gravid, nt Psychiatric: A+Ox3, euthymic affect Genitourinary: cx--3/50/-2/soft/mid toco--shara efm--140s with mod variability, accels to 160s, no decels Coding Level of Care Code None Diagnoses with 39 completed weeks gestation Z3A.39 Gestational hypertension affecting third O13.9
[2022-01-31 15:36] LABS: Hematocrit (blood only) 31.1 % (34.1-44.9); Hemoglobin 10.2 g/dl (12.0-16.0); Mean Corpuscular Hemoglobin 25.2 pg (25.0-34.0); Mean Corpuscular Hgb Conc 32.8 g/dL (32.0-36.0); Platelet Count 299 K/uL (130-400); RDW Coefficient of Variation 13.3 % (11.5-14.5); RDW Standard Deviation 37.6 fL (36.4-46.3); Red Blood Count 4.04 M/uL (3.93-5.22); White Blood Count 9.73 K/ul (4.8-10.8)
[2022-01-31] MEDS: LACTATED RINGER'S 1,000 ML IV PRN ×2 (16:15→20:54)
[2022-01-31] MEDS ORDERED: SODIUM CHLORIDE 0.9% 250 ML IV PRN (16:55)
[2022-01-31] MEDS ORDERED: ePHEDrine sulfate 50 MG/ML AMP ONE (20:40)
[2022-01-31] MEDS ORDERED: SODIUM CHLORIDE 0.9% INJ 10 ML VIAL ONE (20:41)
[2022-01-31] MEDS ORDERED: fentaNYL 2MCG/ML ROPIVACAINE 1.25MG/ML 100 ML BAG EPI ONE (20:41)
[2022-01-31] MEDS ORDERED: fentaNYL citrate 100 MCG/2 ML VIAL ONE (20:41)
[2022-01-31] MEDS ORDERED: BUPIVACAINE 0.25% 30 ML VIAL ONE (20:41)
[2022-01-31] MEDS ORDERED: LIDOCAINE 2%/EPINEPHRINE 1:200,000 20 ML SDV ONE (20:41)
--- NOTE | 2022-01-31 20:53 | Anesthesiology Consultation ---
Date of Service January 31, 2022 Assessment & Plan Chart Review Chart Review: Acceptable Risk for Labor Epidural Consults Requested none History Height/Weight Height: 5 ft Weight: 87.09 kg Allergies Allergy/AdvReac Type Severity Reaction Status Date / Time mushroom Allergy Face Verified 01/31/22 08:34 swelling/hives nickel Allergy Rash Verified 01/31/22 08:34 Medications Home Medications Medication Instructions Recorded Confirmed Last Taken prenat.vits,katharine,olx-bbiu-edlcu 1 tab PO DAILY 06/20/21 01/31/22 01/30/22 aspirin 81 mg capsule 81 mg PO DAILY 09/06/21 01/31/22 01/29/22 sertraline 25 mg tablet (Zoloft) 25 mg PO DAILY #30 tabs 09/28/21 01/31/22 Unknown Active Medications Generic Name Dose Route Start Last Admin Trade Name Freq PRN Reason Stop Dose Admin Lactated Ringer's 1,000 mls @ 125 mls/hr 01/31/22 15:04 01/31/22 20:37 Lr IV 02/02/22 15:03 999 mls/hr .Q8H PRN Infusion L&D Protocol Protocol Oxytocin 30 units in 500 mls @ 12 mls/hr 01/31/22 15:46 01/31/22 20:05 Pitocin IV 02/02/22 15:45 0.72 units/hr .Q24H PRN 12 mls/hr Labor Induction/Augmentation Titration Protocol 0.72 UNITS/HR Past Medical History Medical History Abdominal pain Depression with anxiety Influenza B Iron deficiency anemia Migraine headache PROM (premature rupture of membranes) Strep pharyngitis Tachycardia Past Family History Family History Mother Depression Hypertension Dyslipidemia Grandfather (Maternal) Prostate cancer Father Hx of migraines Other No pertinent family history Denies family history of Ovarian cancer Myocardial infarction Breast cancer Colorectal cancer Past Surgical History Surgical History S/P appendectomy S/P tonsillectomy S/P wisdom tooth extraction Social History Smoking Status: Never smoker Hx Alcohol Use: No Hx Substance Use: No Physical Exam Vital Signs Last Vital Signs Temp 36.7 C 01/31/22 19:04 Pulse 83 01/31/22 20:51 Resp 18 01/31/22 20:22 BP 127/83 01/31/22 20:51 Pulse Ox 100 01/31/22 20:49 Testing Laboratory Results 01/31/22 15:20 Blood Type AB Positive 01/31/22 15:20 Antibody Screen NEGATIVE 01/31/22 15:20
[2022-01-31] MEDS ORDERED: NALOXONE HCL 1 MG in SODIUM CHLORIDE 0.9% 1000ML 1,000 ML IV PRN (21:30)
[2022-01-31] MEDS ORDERED: ePHEDrine sulfate 50 MG/ML AMP IV PRN (21:30)
[2022-01-31] MEDS ORDERED: fentaNYL 2MCG/ML ROPIVACAINE 1.25MG/ML 100 ML BAG EPI PRN (21:30)
[2022-01-31] MEDS ORDERED: NALOXONE HCL 0.4 MG/1 ML VIAL/CARP IV PRN (21:30)
[2022-01-31] MEDS ORDERED: diphenhydrAMINE 50 MG/ML VIAL IV PRN (21:30)
[2022-01-31] MEDS ORDERED: NALBUPHINE HCL INJ 10 MG/ML AMP IV PRN (21:30)
--- NOTE | 2022-01-31 21:40 | Labor Progress Brief Note ---
Date of Service January 31, 2022 Subjective Patient sat up for the epidural and had srom, clear. Comfortable Assessment & Plan (1) Gestational hypertension affecting third : (2) with 39 completed weeks gestation: Plan continue current management. fetus category one. anticipate . Admission and Anticipated Discharge Date Admission Date: January 31, 2022 Physical Exam Physical Exam: cx--5/75/-2 toco--qq2-4min, pit at 14 efm--140s with mod variability, accels to 160s, no decels Results & Data ([facility]) Vital Signs (Past 12 Hours) Vital Signs Temp Pulse Resp BP Pulse Ox 01/31/22 16:40 36.9 C 117 H 18 128/71 01/31/22 21:36 96 H 01/31/22 21:36 108/63 01/31/22 21:34 100 01/31/22 21:34 82 01/31/22 21:33 85 01/31/22 21:33 114/60 01/31/22 21:30 85 01/31/22 21:30 110/58 L 01/31/22 21:29 100 01/31/22 21:29 88 01/31/22 21:27 87 01/31/22 21:27 117/64 01/31/22 21:24 100 01/31/22 21:24 101 H 01/31/22 21:24 111/62 01/31/22 21:21 89 01/31/22 21:21 108/61 01/31/22 20:47 18 01/31/22 20:47 36.9 C 18 01/31/22 21:21 18 01/31/22 21:21 36.9 C 18 01/31/22 21:19 99 01/31/22 21:19 119 H 01/31/22 21:18 100 H 01/31/22 21:18 117/68 01/31/22 21:15 92 H 01/31/22 21:15 126/73 01/31/22 21:14 99 01/31/22 21:14 91 H 01/31/22 21:09 100 01/31/22 21:09 95 H 01/31/22 21:08 92 01/31/22 21:08 98 H 01/31/22 21:04 99 01/31/22 21:04 89 01/31/22 20:59 100 01/31/22 20:59 83 01/31/22 20:54 100 01/31/22 20:54 89 01/31/22 20:51 83 01/31/22 20:51 127/83 01/31/22 20:49 100 01/31/22 20:49 86 01/31/22 20:22 18 01/31/22 20:22 18 01/31/22 20:22 103 H 01/31/22 20:22 120/72 01/31/22 19:52 106 H 01/31/22 19:52 119/73 01/31/22 19:21 100 H 01/31/22 19:21 130/83 01/31/22 19:04 18 01/31/22 19:04 36.7 C 18 01/31/22 19:04 81 01/31/22 19:04 126/70 01/31/22 18:51 82 01/31/22 18:51 111/70 01/31/22 18:24 100 H 01/31/22 18:24 121/77 01/31/22 17:50 94 H 01/31/22 17:50 119/70 01/31/22 17:22 101 H 01/31/22 17:22 141/73 H 01/31/22 16:50 117 H 01/31/22 16:50 128/71 01/31/22 16:21 96 H 110/72 01/31/22 15:50 125 H 118/69 01/31/22 15:10 97 H 127/72 Coding Level of Care Code None Diagnoses Gestational hypertension affecting third O13.9 with 39 completed weeks gestation Z3A.39
[2022-01-31] MEDS ORDERED: METHYLERGONOVINE MALEATE 0.2 MG/ML AMP ONE (23:37)
[2022-01-31] MEDS ORDERED: METHYLERGONOVINE MALEATE 0.2 MG/ML AMP IM ONE (23:46)
[2022-01-31] MEDS ORDERED: ACETAMINOPHEN 325 MG TAB PO PRN (23:46)
[2022-01-31] MEDS ORDERED: HYDROCORTISONE ACETATE 25 MG SUPP PR PRN (23:46)
[2022-01-31] MEDS ORDERED: BENZOCAINE 20% AER SPR 82.5 GM CAN EXT PRN (23:46)
[2022-01-31] MEDS ORDERED: oxyCODONE/ACETAMINOPHEN 5mg/325mg TAB PO PRN (23:46)
[2022-01-31] MEDS ORDERED: DIPHTHERIA/TETANUS/PERTUSSIS 0.5 ML SYR/VIAL IM ONE (23:46)
--- NOTE | 2022-01-31 23:46 | Delivery Summary ---
Vaginal Delivery Summary Date of Service January 31, 2022 Vaginal Delivery Summary Pre-operative Diagnosis: at 39 weeks ghtn Post-operative Diagnosis: same Procedure: pitocin induction epidural EBL: 300cc Anesthesia: epidural Procedure: patient presented to labor and delivery meeting criteria for ghtn. She underwent pitocin induction, epidural, srom for clear fluid. She progressed to c/c/+2. The patient pushed for one contractions to deliver a viable female infant in lisa position. The nose and mouth were bulb suctioned on the perineum and the rest of the infant was then delivered without difficulty after a loose nuchal cord was reduced. The baby was vigorous. The nose and mouth were again bulb suctioned and the was placed in the maternal abdomen for drying and attention. Cord was clamped and cut at one minute of life. Cord blood and segment obtained. Placenta was manually extracted, intact with a three vessel cord. Cervix/sulci/rectum/perineum were intact. Hemostasis obtained with dilute pitocin and fundal massage and one dose of methergine. Apgars were 8/9. Mother and baby doing well at the end of the delivery. [facility] [place] Vaginal Delivery Charge Delivery Type Details: [facility]
--- NOTE | 2022-01-31 23:54 | Anesthesia Procedure Note ---
Date of Service January 31, 2022 Anesthesia Post Epidural Note Vital Signs Vital Signs: Temp Pulse Resp BP Pulse Ox 36.7 C 85 18 123/67 99 01/31/22 23:10 01/31/22 23:41 01/31/22 23:10 01/31/22 23:41 01/31/22 23:39 Pain Intensity Bilateral Lower Abdomen: Pain Intensity: 3 Notes Mental Status: alert / awake / arousable Nausea / Vomiting: adequately controlled Pain: adequately controlled Airway Patency, RR, SpO2: stable & adequate BP & HR: stable & adequate Hydration State: stable & adequate Neuraxial Anesthesia: was administered and sensory block is resolving Anesthetic Complications: no major complications apparent and Pt Satisfied with anesthetic care Epidural: Removed without complications and With tip intact
[2022-02-01] MEDS ORDERED: ONDANSETRON INJ 2 MG/ML 2 ML VIAL IV STA (02:28)
[2022-02-01] MEDS: IBUPROFEN 600 MG TAB PO PRN ×4 (02:57→17:33)
[2022-02-01 07:28] LABS: Hematocrit (blood only) 31.1 % (34.1-44.9); Hemoglobin 10.2 g/dl (12.0-16.0)
--- NOTE | 2022-02-01 07:41 | Obstetrical Progress Note ---
Date of Service <Malik Mora - Last Filed: 02/01/22 07:41> February 01, 2022 Assessment & Plan <Malik Mora - Last Filed: 02/01/22 07:41> (1) Status post vaginal delivery: - Feels well today. Eating well, voiding well, ambulating well. -Having some N/V that is controlled with Zofran prn. - Pain well controlled with ibuprofen 600mg Q4H PRN - Routine care -- OOB, ambulation, diet progression as tolerated - After discharge will have 6 week follow-up with Dr. Spence (2) Gestational hypertension affecting third : -BP has in the 120-130's/ 70-80's. -elevated protein in the urine. -No s/s of anything concerning at this time. -Will continue to monitor BP and monitor s/s closely. <Melody Spence MD, FACOG - Last Filed: 02/01/22 07:55> (1) Status post vaginal delivery: (2) Gestational hypertension affecting third : Subjective <Malik Mora - Last Filed: 02/01/22 07:41> Patient is a 26 y/o female who is now PPD # 1 following spontaneous vaginal delivery at 39 weeks. Reports feeling well overall this morning. Mild abdominal cramping & 2/10 pain well managed on analgesics. Voiding well. Tolerating meals overnight and able to ambulate some. Able to pass gas and has not had a bowel movement. Has some persistent lochia with some improvement this morning. Currently breast feeding. Review of Systems Denies fever, chills, sweats +N/V Denies shortness of breath, difficulty breathing, chest pain, palpitations, chest pressure. Denies breast pain. Denies dysuria. Denies headache or changes in vision. Physical Exam <Malik Velasquezmelissa - Last Filed: 02/01/22 07:41> General: Alert, oriented. No acute distress. Cardiac: Regular rate and rhythm, no murmurs/rubs/gallops. Respiratory: Clear to auscultation bilaterally a/p, no wheezes/rales/rhonchi. No increased work of breathing. Symmetrical chest rise. No respiratory distress. Abdomen: Soft, nontender, nondistended. Bowel sounds present. Uterus: Uterine fundus firm, palpable 1-2 cm below umbilicus. Lower Extremities: No lower extremity edema or swelling. No deep calf pain. Yaa's negative bilaterally. Results & Data ([facility]) <Malik ArmstrongMackenzie Velasquezmelissa, - Last Filed: 02/01/22 07:41> Vital Signs (Past 12 Hours) Vital Signs Temp Pulse Pulse Resp BP BP Pulse Ox 02/01/22 04:05 36.6 C 81 16 133/76 98 02/01/22 03:05 36.7 C 68 16 116/75 02/01/22 02:37 37.1 C 16 02/01/22 00:40 18 02/01/22 01:40 16 02/01/22 01:10 18 02/01/22 00:25 18 02/01/22 00:10 18 01/31/22 23:55 18 01/31/22 23:40 18 02/01/22 02:37 88 124/77 02/01/22 01:55 74 121/82 02/01/22 01:41 77 123/80 02/01/22 01:25 88 129/84 02/01/22 01:11 70 118/75 02/01/22 00:56 91 H 141/76 H 02/01/22 00:41 87 138/61 02/01/22 00:25 89 132/81 02/01/22 00:10 88 126/75 01/31/22 23:55 87 01/31/22 23:55 128/75 01/31/22 23:41 85 01/31/22 23:41 123/67 01/31/22 23:39 99 01/31/22 23:39 88 01/31/22 23:34 99 01/31/22 23:34 83 01/31/22 23:31 83 01/31/22 23:31 100/67 01/31/22 23:29 100 01/31/22 23:29 100 H 01/31/22 23:28 88 L 01/31/22 23:28 95 H 01/31/22 23:24 100 01/31/22 23:24 97 H 01/31/22 23:19 100 01/31/22 23:19 98 H 01/31/22 23:18 83 01/31/22 23:18 109/68 01/31/22 23:14 99 01/31/22 23:14 84 01/31/22 23:10 18 01/31/22 23:10 36.7 C 18 01/31/22 23:09 100 01/31/22 23:09 89 01/31/22 23:04 100 01/31/22 23:04 90 01/31/22 23:02 100 H 01/31/22 23:02 127/75 01/31/22 22:59 99 01/31/22 22:59 92 H 01/31/22 22:54 98 01/31/22 22:54 86 01/31/22 22:49 99 01/31/22 22:49 78 01/31/22 22:47 79 01/31/22 22:47 118/71 01/31/22 22:44 99 01/31/22 22:44 88 01/31/22 22:39 99 01/31/22 22:39 80 01/31/22 22:34 97 01/31/22 22:34 90 01/31/22 22:31 86 01/31/22 22:31 117/67 01/31/22 22:29 98 01/31/22 22:29 87 01/31/22 22:24 99 01/31/22 22:24 107 H 01/31/22 22:19 100 01/31/22 22:19 97 H 01/31/22 22:17 84 01/31/22 22:17 126/75 01/31/22 22:14 98 01/31/22 22:14 77 01/31/22 22:09 99 01/31/22 22:09 95 H 01/31/22 22:04 100 01/31/22 22:04 93 H 01/31/22 22:01 126 H 01/31/22 22:01 105/66 01/31/22 21:59 99 01/31/22 21:59 86 01/31/22 21:57 84 01/31/22 21:57 114/66 01/31/22 21:54 98 01/31/22 21:54 77 01/31/22 21:52 86 01/31/22 21:52 114/68 01/31/22 21:49 100 01/31/22 21:49 79 01/31/22 21:48 75 01/31/22 21:48 115/69 01/31/22 21:44 99 01/31/22 21:44 85 01/31/22 21:42 81 01/31/22 21:42 111/68 01/31/22 21:39 100 01/31/22 21:39 80 01/31/22 21:36 96 H 01/31/22 21:36 108/63 01/31/22 21:34 100 01/31/22 21:34 82 01/31/22 21:33 85 01/31/22 21:33 114/60 01/31/22 21:30 85 01/31/22 21:30 110/58 L 01/31/22 21:29 100 01/31/22 21:29 88 01/31/22 21:27 87 01/31/22 21:27 117/64 01/31/22 21:24 100 01/31/22 21:24 101 H 01/31/22 21:24 111/62 01/31/22 21:21 89 01/31/22 21:21 108/61 01/31/22 20:47 18 01/31/22 20:47 36.9 C 18 01/31/22 21:21 18 01/31/22 21:21 36.9 C 18 01/31/22 21:19 99 01/31/22 21:19 119 H 01/31/22 21:18 100 H 01/31/22 21:18 117/68 01/31/22 21:15 92 H 01/31/22 21:15 126/73 01/31/22 21:14 99 01/31/22 21:14 91 H 01/31/22 21:09 100 01/31/22 21:09 95 H 01/31/22 21:08 92 01/31/22 21:08 98 H 01/31/22 21:04 99 01/31/22 21:04 89 01/31/22 20:59 100 01/31/22 20:59 83 01/31/22 20:54 100 01/31/22 20:54 89 01/31/22 20:51 83 01/31/22 20:51 127/83 01/31/22 20:49 100 01/31/22 20:49 86 01/31/22 20:22 18 01/31/22 20:22 18 01/31/22 20:22 103 H 01/31/22 20:22 120/72 01/31/22 19:52 106 H 01/31/22 19:52 119/73 O2 Del Method 02/01/22 04:05 Room Air 02/01/22 03:05 02/01/22 02:37 02/01/22 00:40 02/01/22 01:40 02/01/22 01:10 02/01/22 00:25 02/01/22 00:10 01/31/22 23:55 01/31/22 23:40 02/01/22 02:37 02/01/22 01:55 02/01/22 01:41 02/01/22 01:25 02/01/22 01:11 02/01/22 00:56 02/01/22 00:41 02/01/22 00:25 02/01/22 00:10 01/31/22 23:55 01/31/22 23:55 01/31/22 23:41 01/31/22 23:41 01/31/22 23:39 01/31/22 23:39 01/31/22 23:34 01/31/22 23:34 01/31/22 23:31 01/31/22 23:31 01/31/22 23:29 01/31/22 23:29 01/31/22 23:28 01/31/22 23:28 01/31/22 23:24 01/31/22 23:24 01/31/22 23:19 01/31/22 23:19 01/31/22 23:18 01/31/22 23:18 01/31/22 23:14 01/31/22 23:14 01/31/22 23:10 01/31/22 23:10 01/31/22 23:09 01/31/22 23:09 01/31/22 23:04 01/31/22 23:04 01/31/22 23:02 01/31/22 23:02 01/31/22 22:59 01/31/22 22:59 01/31/22 22:54 01/31/22 22:54 01/31/22 22:49 01/31/22 22:49 01/31/22 22:47 01/31/22 22:47 01/31/22 22:44 01/31/22 22:44 01/31/22 22:39 01/31/22 22:39 01/31/22 22:34 01/31/22 22:34 01/31/22 22:31 01/31/22 22:31 01/31/22 22:29 01/31/22 22:29 01/31/22 22:24 01/31/22 22:24 01/31/22 22:19 01/31/22 22:19 01/31/22 22:17 01/31/22 22:17 01/31/22 22:14 01/31/22 22:14 01/31/22 22:09 01/31/22 22:09 01/31/22 22:04 01/31/22 22:04 01/31/22 22:01 01/31/22 22:01 01/31/22 21:59 01/31/22 21:59 01/31/22 21:57 01/31/22 21:57 01/31/22 21:54 01/31/22 21:54 01/31/22 21:52 01/31/22 21:52 01/31/22 21:49 01/31/22 21:49 01/31/22 21:48 01/31/22 21:48 01/31/22 21:44 01/31/22 21:44 01/31/22 21:42 01/31/22 21:42 01/31/22 21:39 01/31/22 21:39 01/31/22 21:36 01/31/22 21:36 01/31/22 21:34 01/31/22 21:34 01/31/22 21:33 01/31/22 21:33 01/31/22 21:30 01/31/22 21:30 01/31/22 21:29 01/31/22 21:29 01/31/22 21:27 01/31/22 21:27 01/31/22 21:24 01/31/22 21:24 01/31/22 21:24 01/31/22 21:21 01/31/22 21:21 01/31/22 20:47 01/31/22 20:47 01/31/22 21:21 01/31/22 21:21 01/31/22 21:19 01/31/22 21:19 01/31/22 21:18 01/31/22 21:18 01/31/22 21:15 01/31/22 21:15 01/31/22 21:14 01/31/22 21:14 01/31/22 21:09 01/31/22 21:09 01/31/22 21:08 01/31/22 21:08 01/31/22 21:04 01/31/22 21:04 01/31/22 20:59 01/31/22 20:59 01/31/22 20:54 01/31/22 20:54 01/31/22 20:51 01/31/22 20:51 01/31/22 20:49 01/31/22 20:49 01/31/22 20:22 01/31/22 20:22 01/31/22 20:22 01/31/22 20:22 01/31/22 19:52 01/31/22 19:52 <Melody Spence MD, FACOG - Last Filed: 02/01/22 07:55> Co-Signing Physician Notes Resident Physician Supervision Note: I interviewed and examined the patient. Discussed with Dr. Mora and agree with findings and plan as documented in the note. Any exceptions or clarifications are listed here: Doing well. Blood pressures are good. Will continue to monitor. Documented By: Melody Spence MD, FACOG Resident Activity Tracking <Malik Mora DO - Last Filed: 02/01/22 07:41> Resident Involvement: Resident Care Provided Care Provided: OB Delivery
[2022-02-01] MEDS: PRENATAL VITAMIN 1 TAB PO SCH (08:52)
[2022-02-01] MEDS: DOCUSATE SODIUM 100 MG CAP PO SCH ×2 (08:52→20:35)
[2022-02-01] MEDS ORDERED: bisacodyL 5 MG TABEC PO SCH (20:00)
[2022-02-02] MEDS ORDERED: bisacodyL 10 MG SUPP PR PRN
[2022-02-02] MEDS: IBUPROFEN 600 MG TAB PO PRN ×2 (03:49→07:57)
--- NOTE | 2022-02-02 06:11 | Obstetrical Progress Note ---
Date of Service February 02, 2022 Assessment & Plan (1) Status post vaginal delivery: - Feels well today. Eating well, voiding well, ambulating well. - Not having any N/V currently - Pain well controlled with ibuprofen 600mg Q4H PRN - Routine care -- OOB, ambulation, diet progression as tolerated - After discharge will have 6 week follow-up with Dr. Spence - Will D/C today. (2) Gestational hypertension affecting third : -BP has been stable since delivery. -elevated protein in the urine prior to delivery. -No s/s of anything concerning at this time. -Should monitor BP at home and will check at her f/u visit. Subjective Patient is a 26 y/o female who is now PPD # 2 following spontaneous vaginal delivery at 39 weeks. Reports feeling well overall this morning. Mild abdominal cramping & 3/10 pain well managed on analgesics. Voiding well. Tolerating meals overnight and able to ambulate some. Able to pass gas and has not had a bowel movement. Has some persistent lochia with some improvement this morning. Currently breast feeding. Review of Systems Denies fever, chills, sweats Denies shortness of breath, difficulty breathing, chest pain, palpitations, chest pressure. Denies breast pain. Denies dysuria. Denies headache or changes in vision. Physical Exam General: Alert, oriented. No acute distress. Cardiac: Regular rate and rhythm, no murmurs/rubs/gallops. Respiratory: Clear to auscultation bilaterally a/p, no wheezes/rales/rhonchi. No increased work of breathing. Symmetrical chest rise. No respiratory distress. Abdomen: Soft, nontender, nondistended. Bowel sounds present. Uterus: Uterine fundus firm, palpable 2-3 cm below umbilicus. Lower Extremities: No lower extremity edema or swelling. No deep calf pain. Yaa's negative bilaterally. Results & Data ([facility]) Vital Signs (Past 12 Hours) Vital Signs Temp Pulse Resp BP 02/01/22 23:35 36.7 C 74 18 114/72 02/01/22 20:00 36.9 C 99 H 18 117/73 Resident Activity Tracking Resident Involvement: Resident Care Provided Care Provided: OB Delivery
[2022-02-02] MEDS: PRENATAL VITAMIN 1 TAB PO SCH (07:57)
[2022-02-02] MEDS: DOCUSATE SODIUM 100 MG CAP PO SCH (07:58)
[2022-02-02] MEDS ORDERED: MEASLES, MUMPS & RUBELLA VIRUS VIAL SQ ONE (09:26)
== END 2022-02-02 12:18 | disposition home or self-care (01) | DRG 807 ==
LOC: 4S1 14:58 → 4E2 02-01 03:33